=== PATIENT | male | born 1935 | race Caucasian/White ===

== ENCOUNTER 2016-05-20 13:07 | Inpatient (IN) ==
--- NOTE | 2016-05-20 13:20 | Emergency Department Note ---
Disposition Clinical Impression: Atrial flutter with rapid ventricular response, Metastatic colon cancer to liver Disposition: Admitted As Inpatient Condition: Fair Referrals: Derik Alvarenga Jr, MD [Primary Care Provider] - Forms: ED Satisfaction Letter Time of Disposition: 13:40 Arrhythmia/Palpitations HPI - General Chief Complaint: ED Arrhythmia/Palpitations Stated Complaint: arrhythmia Time Seen by Provider: 05/20/16 13:09 Source: family, other Mode of arrival: wheelchair Limitations: no limitations Nursing Notes Reviewed: Yes Vital Signs Reviewed: Yes - History of Present Illness HPI Narrative: 80-year-old who has a history stage IV cancer metastases to the liver is jaundiced and has stents who was being evaluated for new stent placement was found to have a flutter with a rate of about 134. Patient does have a history of atrial fib. A review of the records shows that the patient did have an echo done in 2013 showed an EF of 60%. No recent echo done. Pt Subjective Complaint: rapid heart beat Onset (ago): Just [employer] Duration: constant Severity: mild Context: occurred during rest Arrhythmia History: atrial fibrillation Associated symptoms: Reports: denies other symptoms - Related Data Home Medications Medication Instructions Recorded Confirmed Levothyroxine [Synthroid] 50 mcg PO DAILY 10/06/14 05/20/16 Prochlorperazine Maleate 10 mg PO Q6HR PRN 04/02/16 05/20/16 [Compazine] Aspirin 81 mg PO DAILY 04/10/16 05/20/16 DiphenhydraMINE [Benadryl] 25 mg PO Q6HR PRN 04/10/16 05/20/16 Guaifenesin [Mucinex] 600 mg PO BID PRN 04/10/16 05/20/16 Oxycodone HCl/Acetaminophen 1 tab PO Q6H PRN 04/10/16 05/20/16 [Percocet 5-325 mg Tablet] HYDROcodone/Acet 10/325 mg [[place] 1 tab PO Q6HR PRN 04/28/16 05/20/16 10-325 mg] Lactose-Reduced Food [Boost] 237 ml PO QID 04/28/16 05/20/16 Metoprolol XL (24 HR) Succ [Toprol 25 mg PO DAILY 05/16/16 05/20/16 XL] Previous Rx's Medication Instructions Recorded Fludrocortisone Acetate [Florinef] 0.1 mg PO DAILY #30 tablet 12/07/15 Lactobacillus Acidophilus 1 each PO DAILY #30 capsule 03/24/16 [Acidophilus Lactobacillus] Trifluridine/Tipiracil HCl 3 each PO BID #60 tablet 05/01/16 [Lonsurf 15 mg-6.14 mg Tablet] Trifluridine/Tipiracil HCl 3 tab PO BID #60 tablet 05/01/16 [Lonsurf 20 mg-8.19 mg Tablet] GuaiFENesin/Codeine [Robitussin 10 ml PO Q6HR PRN #300 liquid 05/16/16 w/Codeine] Sertraline [Zoloft] 100 mg PO HS #90 tablet 05/19/16 Allergies Allergy/AdvReac Type Severity Reaction Status Date / Time Penicillins [PCN] Allergy Intermediate Rash Verified 05/20/16 11:04 Sulfa (Sulfonamide Allergy Mild Rash Verified 05/20/16 11:04 Antibiotics) Constitutional: Denies: fever, chills, weakness, weight change Eyes: Denies: eye pain, eye discharge, vision change ENT ED: Denies: ear pain, throat pain, dental pain, hearing loss, epistaxis, congestion, dysphagia Cardiovascular: Reports: palpitations. Denies: chest pain, dyspnea on exertion , edema, syncope Respiratory: Denies: cough, dyspnea, wheezes, hemoptysis, stridor Gastrointestinal: Denies: abdominal pain, nausea, vomiting, diarrhea, constipation, hematemesis, melena, hematochezia Genitourinary: Denies: urgency, dysuria, frequency, hematuria Musculoskeletal: Denies: back pain, neck pain, arthralgia, myalgia Integumentary: Denies: rash, abrasion, lesions Neurological: Denies: headache, weakness, numbness, paresthesias, confusion, abnormal gait, vertigo Psychiatric: Denies: anxiety, depression, suicidal thoughts, homicidal thoughts , auditory hallucinations, visual hallucinations Endocrine: Denies: fatigue Hematological/Lymphatic: Denies: easy bleeding, easy bruising Allergic/Immunologic: Denies: facial swelling, urticaria Past Medical History - Past Medical History Medical history: Reports: arthritis, atrial fibrillation, cancer, GERD, GI bleed , hepatitis, liver disease, malignancy, osteoporosis, renal disease, thyroid disease, TIA, other Surgical history: Reports: appendectomy, cancer surgery, cataract, colectomy, herniorrhaphy, ureteral stent, other Psychiatric history: Reports: anxiety, depression - Social History Smoking Status: Former smoker Smokeless Tobacco Status: No Alcohol use: Reports: none Drug use: Reports: none Physical Exam - General Limitations: no limitations General appearance: alert, in no apparent distress - Head Head exam: atraumatic, normocephalic, normal inspection - Eye Eye exam: Present: normal appearance, PERRL, EOMI - ENT ENT exam: normal exam, normal oropharynx, mucous membranes moist - Neck Neck exam: Present: normal inspection, full ROM, trachea midline - Chest Chest inspection: Present: normal inspection, symmetric chest wall rise - Respiratory Respiratory exam: Present: normal lung sounds bilaterally - Cardiovascular Cardiovascular exam: Present: regular rate, tachycardia - Abdominal Exam Abdominal exam: Present: soft, Non-Tender. Absent: tenderness, distention, guarding, rebound, rigidity - Extremities Exam Extremities exam: Present: normal inspection, full ROM. Absent: tenderness, pedal edema - Expanded Lower Extremity Exam Gait: observed and normal - Back Exam Back exam: Present: normal inspection, full ROM. Absent: tenderness - Neurological Exam Neurological exam: Present: alert, oriented X3 - Psychiatric Psychiatric exam: Present: normal affect, normal mood - Skin Skin exam: Present: warm, dry, intact, normal color, other (Jaundiced) Course - Reevaluation(s) Reevaluation #1: 80-year-old who was seen a GI procedure found to have a flutter with a rate of 130s. Previous echocardiogram shows an EF of 60%. Consultation obtained with cardiology who recommends Cardizem. Patient does have liver metastases we will reduce the dose of Cardizem based on the liver metastases and the clearance of Cardizem through the liver. Time: 13:39 - Consultations Consultation #1: Discussed with , will start Cardizem. Time: 13:38 Consultation #2: Discussed with , admit. Time: 15:06 Vital Signs Temperature 98.0 F 05/20/16 13:11 Pulse Rate 134 05/20/16 13:11 Respiratory Rate 18 05/20/16 13:11 Blood Pressure 110/70 05/20/16 13:11 O2 Sat by Pulse Oximetry 99 05/20/16 13:11 Temperature 98.0 F 05/20/16 13:11 Pulse Rate 132 03/21/17 15:00 Respiratory Rate 18 05/20/16 13:53 Blood Pressure 102/62 05/20/16 15:00 O2 Sat by Pulse Oximetry 98 05/20/16 15:00 Oxygen Delivery Oxygen Delivery Room Air Arrhythmia/Palpitations - Lab Data Result diagrams: 05/20/16 13:38 05/20/16 13:38 Lab Results 05/20/16 05/20/16 05/20/16 Range/Units 13:38 13:38 13:38 WBC 10.3 (4.3-11.1) K/mcL RBC 2.70 L (4.19-5.50) M/mcL Hgb 9.1 L (12.9-16.9) g/dL Hct 27.0 L (37.5-50.1) % MCV 100.0 (83.0-100.0) fL MCH 33.7 H (28.0-33.3) pg MCHC 33.7 (31.6-35.5) g/dL RDW 16.8 H (11.5-14.5) % Plt Count 159 (140-400) K/mcL MPV 10.5 (9.4-12.4) fL Immature Gran % 0.6 (0-4) % Seg Neutrophils % 87.2 % Lymphocytes % 3.7 % Monocytes % 7.6 % Eosinophils % 0.7 % Basophils % 0.2 % Neutrophils # 8.9 (1.6-8.9) K/mcL Lymphocytes # 0.4 L (0.6-4.6) K/mcL Monocytes # 0.8 (0.0-1.3) K/mcL Eosinophils # 0.1 (0.0-0.6) K/mcL Basophils # 0.0 (0.0-0.2) K/mcL PT 19.7 H (9.4-12.1) Seconds INR 1.8 APTT 35.8 (26.0-36.0) Seconds Sodium 141 (136-145) mEq/L Potassium 3.4 L (3.5-4.5) mEq/L Chloride 111 H (98-109) mEq/L Carbon Dioxide 21 (19-29) mEq/L BUN 26 (8-26) mg/dL Creatinine 0.92 (0.72-1.25) mg/dL Est GFR ( Amer) > 60 (> 60) Est GFR (Non-Af Amer) > 60 (> 60) BUN/Creatinine Ratio 28 H (6-26) Glucose 91 (70-99) mg/dL Calculated Osmolality 296 (280-300) Calcium 8.1 L (8.6-10.8) mg/dL Total Bilirubin (0.2-1.2) mg/dL Direct Bilirubin (0.0-0.5) mg/dL Indirect Bilirubin (0.0-1.2) mg/dL AST (5-34) Units/L ALT (0-55) Units/L Alkaline Phosphatase (38-126) Units/L Troponin I (0-0.03) ng/mL Serum Total Protein (6.0-8.3) g/dL Albumin (3.5-5.0) g/dL Globulin (2.4-3.5) g/dL Albumin/Globulin Ratio (1.1-2.2) TSH 0.599 (0.350-4.840) mcIU/mL 05/20/16 05/20/16 Range/Units 13:38 13:38 WBC (4.3-11.1) K/mcL RBC (4.19-5.50) M/mcL Hgb (12.9-16.9) g/dL Hct (37.5-50.1) % MCV (83.0-100.0) fL MCH (28.0-33.3) pg MCHC (31.6-35.5) g/dL RDW (11.5-14.5) % Plt Count (140-400) K/mcL MPV (9.4-12.4) fL Immature Gran % (0-4) % Seg Neutrophils % % Lymphocytes % % Monocytes % % Eosinophils % % Basophils % % Neutrophils # (1.6-8.9) K/mcL Lymphocytes # (0.6-4.6) K/mcL Monocytes # (0.0-1.3) K/mcL Eosinophils # (0.0-0.6) K/mcL Basophils # (0.0-0.2) K/mcL PT (9.4-12.1) Seconds INR APTT (26.0-36.0) Seconds Sodium (136-145) mEq/L Potassium (3.5-4.5) mEq/L Chloride (98-109) mEq/L Carbon Dioxide (19-29) mEq/L BUN (8-26) mg/dL Creatinine (0.72-1.25) mg/dL Est GFR ( Amer) (> 60) Est GFR (Non-Af Amer) (> 60) BUN/Creatinine Ratio (6-26) Glucose (70-99) mg/dL Calculated Osmolality (280-300) Calcium (8.6-10.8) mg/dL Total Bilirubin 23.3 H (0.2-1.2) mg/dL Direct Bilirubin 17.2 H (0.0-0.5) mg/dL Indirect Bilirubin 6.1 H (0.0-1.2) mg/dL AST 174 H (5-34) Units/L ALT 107 H (0-55) Units/L Alkaline Phosphatase 742 H (38-126) Units/L Troponin I 0.01 (0-0.03) ng/mL Serum Total Protein 5.3 L (6.0-8.3) g/dL Albumin 1.7 L (3.5-5.0) g/dL Globulin 3.6 H (2.4-3.5) g/dL Albumin/Globulin Ratio 0.5 L (1.1-2.2) TSH (0.350-4.840) mcIU/mL
[2016-05-20 13:51] LABS: Basophils % 0.2 %; Eosinophils # 0.1 K/mcL (0.0-0.6); Eosinophils % 0.7 %; Hemoglobin 9.1 g/dL (12.9-16.9); Immature Granulocytes % 0.6 % (0-4); Lymphocytes # 0.4 K/mcL (0.6-4.6); Lymphocytes % 3.7 %; Mean Corpuscular HGB Conc 33.7 g/dL (31.6-35.5); Mean Corpuscular Hemoglobin 33.7 pg (28.0-33.3); Mean Platelet Volume 10.5 fL (9.4-12.4); Monocytes # 0.8 K/mcL (0.0-1.3); Monocytes % 7.6 %; Neutrophils # 8.9 K/mcL (1.6-8.9); Platelet Count 159 K/mcL (140-400); Red Cell Distribution Width 16.8 % (11.5-14.5); Segmented Neutrophils % 87.2 %
[2016-05-20 14:00] LABS: INR 1.8; Prothrombin Time 19.7 Seconds (9.4-12.1)
[2016-05-20 14:02] LABS: Activated Partial Thrombo Time 35.8 Seconds (26.0-36.0)
[2016-05-20 14:03] LABS: BUN/Creatinine Ratio 28 (6-26); Blood Urea Nitrogen 26 mg/dL (8-26); Calcium 8.1 mg/dL (8.6-10.8); Carbon Dioxide 21 mEq/L (19-29); Chloride 111 mEq/L (98-109); Glucose 91 mg/dL (70-99); Osmolality,Calculated 296 (280-300); Potassium 3.4 mEq/L (3.5-4.5); eGFR For African Americans > 60 (> 60); eGFR For Non-African Americans > 60 (> 60)
[2016-05-20 14:06] LABS: Albumin/Globulin Ratio 0.5 (1.1-2.2); Globulin 3.6 g/dL (2.4-3.5); Total Protein 5.3 g/dL (6.0-8.3)
[2016-05-20 14:14] LABS: Sodium 141 mEq/L (136-145)
[2016-05-20] MEDS ORDERED: 0.9 % Sodium Chloride 500 ML IVC ONE (14:19)
[2016-05-20 14:27] LABS: Thyroid Stimulating Hormone 0.599 mcIU/mL (0.350-4.840)
[2016-05-20 14:47] LABS: Albumin 1.7 g/dL (3.5-5.0)
[2016-05-20 14:48] LABS: Bilirubin,Direct 17.2 mg/dL (0.0-0.5); Bilirubin,Indirect 6.1 mg/dL (0.0-1.2); Bilirubin,Total 23.3 mg/dL (0.2-1.2)
[2016-05-20] MEDS ORDERED: Naloxone 0.4 MG/ML INJ IVP PRN (17:55)
[2016-05-20] MEDS ORDERED: Ondansetron ODT 4 MG TAB.RAPDIS SL PRN (17:55)
[2016-05-20] MEDS ORDERED: *HR* HYDROcodone/Acet 10/325 mg TABLET PO PRN (17:59)
[2016-05-20] MEDS ORDERED: Nitroglycerin 0.4 MG TAB.SUBL SL PRN (17:59)
--- NOTE | 2016-05-20 18:24 | Internal Med History&Physical ---
Date of Encounter: 05/20/16 Time of Encounter: 18:13 Assessment and Plan (1) Atrial flutter with rapid ventricular response Current visit: Yes Status: Acute Patient with HR in 130s. He has history of Afib and is on Toprol at home, though patient's daughter reports he takes it "when he remembers". Cardiology consulted and advised starting a cardizem drip. Cardizem drip continuous stoner hand Transition to oral cardizem once rate is controlled. (2) Metastatic colon cancer to liver Current visit: Yes Status: Acute Patient was here for planned ERCP to relieve obstructive jaundice due to liver metastasis. Procedure aborted due to Aflutter with RVR. Once heart rate is controlled, patient may proceed with procedure. Patient is DNR-CCA-DNI. NPO at midnight in case of procedure tomorrow. (3) Attention to urostomy Current visit: No Status: Chronic Patient with Urostomy in place. Ostomy beefy red with orange liquid output. (4) Jaundice Current visit: No Status: Acute Patient was here for planned ERCP to relieve obstructive jaundice due to liver metastasis. Procedure aborted due to Aflutter with RVR. Once heart rate is controlled, patient may proceed with procedure. Patient is DNR-CCA-DNI. Consult to GI/Dr. Melton in order to coordinate ERCP. NPO at midnight in case of procedure tomorrow. (5) Hypokalemia Current visit: Yes Status: Acute Potassium of 3.4. 40mEq of Potassium Chloride PO ordered recheck chemistry tomorrow. (6) Anemia Current visit: Yes Status: Acute Hgb of 9.1, down from previous of 9.8. Patient denies any bloody stools or bleeding episodes. type and screen ordered. Iron studies, B12 and folate. Qualifiers: Anemia type: unspecified type Qualified Code(s): D64.9 - Anemia, unspecified (7) DVT prophylaxis Current visit: No Status: Acute Ambulate with assistance anti-embolic stockings Hold anti-coagulation in anticipation of possible procedure tomorrow. Internal Medicine - H&P: HPI Chief complaint: Aflutter with RVR Admitted From: Emergency Dept Plans for Post Hospital Care: Home History of present illness: Mr. Correa is a 80 year old male with atrial fibrillation, acid reflux, history of bladder cancer status post cystectomy and urostomy, metastatic colon cancer with liver and lung metastasis, he was sent to the emergency department after it was found that he was in a flutter with rapid ventricular response and heart rate of 134 when being prepped for his ERCP. Patient has progressive jaundice due to his liver metastasis and has had prior stents placed. Jaundice has returned they were planning another ERCP with stent today. Patient denies any headache, lightheadedness, chest pain, palpitations, shortness of breath. Patient reports a cough that has been going on for 2-3 weeks. Patient reports some nausea, and poor appetite. He denies any abdominal pain, or diarrhea. He denies any fever, chills, or sweats. Evaluation in the emergency department included EKG which showed a flutter with heart rate 134. Patient was anemic with hemoglobin of 9.1, which is consistent with his baseline. He was mildly hypokalemic with potassium of 3.4. LFTs were all elevated. Troponin was negative at 0.01. Kidney function was normal with BUN of 26 and creatinine of 0.92. On exam, patient is alert and oriented, in no acute distress. Lungs are clear bilaterally to auscultation. Heart had irregular rhythm. He was jaundiced. He had some mild tenderness in his right upper quadrant on palpation. Past Med Surg Social Fam HX - Past Medical History Medical history: arthritis, atrial fibrillation, cancer (bladder cancer s/p cystectomy with urostomy. Colon cancer s/p colectomy with ileostomy and reversal, now metastatic to Lungs and liver), GERD, GI bleed, hepatitis, liver disease (metastasis to liver with obstructive jaundice), malignancy, osteoporosis, renal disease, thyroid disease, TIA, other Psychiatric history: anxiety, depression - Past Surgical History Surgical History: appendectomy, cancer surgery, cataract, colectomy, herniorrhaphy, ureteral stent, other - Social History Smoking Status: Former smoker Smokeless Tobacco Status: No Alcohol use: none Drug use: none - Family History Mother History Unknown: Yes Adopted: No Family Member Ethnicity: Non- Living Status: Hx Family Cardiac Disorders: No Hx Family Respiratory Disorders: No Hx Family Cancer: Yes (bladder CA) Hx Family GI Disorders: No Hx Family Endocrine Disorder: No Hx Family Neuromuscular Disorders: No Hx Family Neurologic Disorders: No Hx Family HEENT Disorders: No Hx Family Autoimmune Disorders: No Father Living Status: Age at : 75 Cause of : cardiac Internal Medicine - H&P: Meds Levothyroxine [Synthroid] 50 mcg PO DAILY 10/06/14 [History] Fludrocortisone Acetate [Florinef] 0.1 mg PO DAILY #30 tablet 12/07/15 [Rx] Lactobacillus Acidophilus [Acidophilus Lactobacillus] 1 each PO DAILY #30 capsule 03/24/16 [Rx] Prochlorperazine Maleate [Compazine] 10 mg PO Q6HR PRN 04/02/16 [History] Aspirin 81 mg PO DAILY 04/10/16 [History] DiphenhydraMINE [Benadryl] 25 mg PO Q6HR PRN 04/10/16 [History] Guaifenesin [Mucinex] 600 mg PO BID PRN 04/10/16 [History] Oxycodone HCl/Acetaminophen [Percocet 5-325 mg Tablet] 1 tab PO Q6H PRN [History] HYDROcodone/Acet 10/325 mg [[place] 10-325 mg] 1 tab PO Q6HR PRN 04/28/16 [History ] Lactose-Reduced Food [Boost] 237 ml PO QID 04/28/16 [History] Trifluridine/Tipiracil HCl [[place] 15 mg-6.14 mg Tablet] 3 each PO BID #60 tablet 05/01/16 [Rx] Trifluridine/Tipiracil HCl [[place] 20 mg-8.19 mg Tablet] 3 tab PO BID #60 tablet 05/01/16 [Rx] GuaiFENesin/Codeine [Robitussin w/Codeine] 10 ml PO Q6HR PRN #300 liquid [Rx] Metoprolol XL (24 HR) Succ [Toprol XL] 25 mg PO DAILY 05/16/16 [History] Sertraline [Zoloft] 100 mg PO HS #90 tablet 05/19/16 [Rx] Nitroglycerin [Nitrostat] 0.4 mg SL Q5M PRN 05/20/16 [History] Allergies Penicillins [PCN] Allergy (Intermediate, Verified 05/20/16 11:04) Rash Sulfa (Sulfonamide Antibiotics) Allergy (Mild, Verified 05/20/16 11:04) Rash All Systems PM: A 10-system review of systems was performed and is negative for pertinent findings except as documented above in the HPI. - Constitutional Constitutional: anorexia, no chills, no fever(s), no night sweats - EENT Eyes: no change in vision, no discharge, no pain, no photophobia Ears: no ear discharge, no ear pain, no tinnitus Nose, mouth and throat: no dysphagia, no nasal discharge, no neck pain, no sore throat - Cardiovascular Cardiovascular ROS IM: no chest pain, no diaphoresis, no dyspnea, no lightheadedness, no palpitations, no syncope - Respiratory Respiratory: cough, no dyspnea, no wheezing, no excessive phlegm production - Gastrointestinal Gastrointestinal: nausea, no abdominal pain, no diarrhea, no hematemesis, no hematochezia, no melena, no vomiting - Musculoskeletal Musculoskeletal ROS IM: no numbness, no tingling - Integumentary Integumentary IM: jaundice, no rash, no unusual bruising - Neurological Neurological ROS: confusion (per daughter, occasional confusion), no convulsions , no focal weakness, no numbness, no tingling, no tremor(s) - Hematologic/Lymphatic Hematologic/Lymphatic: no easy bruising - Constitutional Vitals: Temp Pulse Resp BP Pulse Ox 97.9 F 130 15 100/63 97 05/20/16 17:09 05/20/16 17:09 05/20/16 15:46 05/20/16 17:09 05/20/16 17:09 General appearance: Present: A&O X 3, pleasant, no acute distress - Head Head exam: Present: atraumatic, normocephalic - Eye Eye exam: Present: PERRL, scleral icterus, conjuntiva pink Pupils: Present: PERRL - Neck Neck exam general surgery: Present: supple, trachea midline. Absent: lymphadenopathy - Respiratory Respiratory exam: Present: CTAB. Absent: accessory muscle use, rales, rhonchi, wheezes - Cardiovascular Cardiovascular exam: Present: irregular rhythm, +S1, +S2, tachycardia. Absent: diastolic murmur, gallop, rubs, systolic murmur - GI/Abdominal GI/Abdominal exam: Present: normal bowel sounds, soft, tenderness (mild right upper quadrant), no peritoneal signs. Absent: distended - Extremities Exam Extremities exam: Present: pedal edema (+2 BLE edema), warm, radial pulses palpable and symetrical. Absent: calf tenderness, cyanotic - Neurological Exam Neurological exam: Present: CN II-XII intact, oriented X3, no focal deficits. Absent: facial droop, speech deficit - Skin Skin exam: Present: dry, intact. Absent: normal color (jaundice) Internal Med - H&P Results - Labs CBC & Chem 7: 05/20/16 13:38 05/20/16 13:38 Labs: All Lab Results (24 Hours) 05/20/16 05/20/16 05/20/16 Range/Units 13:38 13:38 13:38 WBC 10.3 (4.3-11.1) K/mcL RBC 2.70 L (4.19-5.50) M/mcL Hgb 9.1 L (12.9-16.9) g/dL Hct 27.0 L (37.5-50.1) % MCV 100.0 (83.0-100.0) fL MCH 33.7 H (28.0-33.3) pg MCHC 33.7 (31.6-35.5) g/dL RDW 16.8 H (11.5-14.5) % Plt Count 159 (140-400) K/mcL MPV 10.5 (9.4-12.4) fL Immature Gran % 0.6 (0-4) % Seg Neutrophils % 87.2 % Lymphocytes % 3.7 % Monocytes % 7.6 % Eosinophils % 0.7 % Basophils % 0.2 % Neutrophils # 8.9 (1.6-8.9) K/mcL Lymphocytes # 0.4 L (0.6-4.6) K/mcL Monocytes # 0.8 (0.0-1.3) K/mcL Eosinophils # 0.1 (0.0-0.6) K/mcL Basophils # 0.0 (0.0-0.2) K/mcL PT 19.7 H (9.4-12.1) Seconds INR 1.8 APTT 35.8 (26.0-36.0) Seconds Sodium 141 (136-145) mEq/L Potassium 3.4 L (3.5-4.5) mEq/L Chloride 111 H (98-109) mEq/L Carbon Dioxide 21 (19-29) mEq/L BUN 26 (8-26) mg/dL Creatinine 0.92 (0.72-1.25) mg/dL Est GFR ( Amer) > 60 (> 60) Est GFR (Non-Af Amer) > 60 (> 60) BUN/Creatinine Ratio 28 H (6-26) Glucose 91 (70-99) mg/dL Calculated Osmolality 296 (280-300) Calcium 8.1 L (8.6-10.8) mg/dL Total Bilirubin (0.2-1.2) mg/dL Direct Bilirubin (0.0-0.5) mg/dL Indirect Bilirubin (0.0-1.2) mg/dL AST (5-34) Units/L ALT (0-55) Units/L Alkaline Phosphatase (38-126) Units/L Troponin I (0-0.03) ng/mL Serum Total Protein (6.0-8.3) g/dL Albumin (3.5-5.0) g/dL Globulin (2.4-3.5) g/dL Albumin/Globulin Ratio (1.1-2.2) TSH 0.599 (0.350-4.840) mcIU/mL 05/20/16 05/20/16 Range/Units 13:38 13:38 WBC (4.3-11.1) K/mcL RBC (4.19-5.50) M/mcL Hgb (12.9-16.9) g/dL Hct (37.5-50.1) % MCV (83.0-100.0) fL MCH (28.0-33.3) pg MCHC (31.6-35.5) g/dL RDW (11.5-14.5) % Plt Count (140-400) K/mcL MPV (9.4-12.4) fL Immature Gran % (0-4) % Seg Neutrophils % % Lymphocytes % % Monocytes % % Eosinophils % % Basophils % % Neutrophils # (1.6-8.9) K/mcL Lymphocytes # (0.6-4.6) K/mcL Monocytes # (0.0-1.3) K/mcL Eosinophils # (0.0-0.6) K/mcL Basophils # (0.0-0.2) K/mcL PT (9.4-12.1) Seconds INR APTT (26.0-36.0) Seconds Sodium (136-145) mEq/L Potassium (3.5-4.5) mEq/L Chloride (98-109) mEq/L Carbon Dioxide (19-29) mEq/L BUN (8-26) mg/dL Creatinine (0.72-1.25) mg/dL Est GFR ( Amer) (> 60) Est GFR (Non-Af Amer) (> 60) BUN/Creatinine Ratio (6-26) Glucose (70-99) mg/dL Calculated Osmolality (280-300) Calcium (8.6-10.8) mg/dL Total Bilirubin 23.3 H (0.2-1.2) mg/dL Direct Bilirubin 17.2 H (0.0-0.5) mg/dL Indirect Bilirubin 6.1 H (0.0-1.2) mg/dL AST 174 H (5-34) Units/L ALT 107 H (0-55) Units/L Alkaline Phosphatase 742 H (38-126) Units/L Troponin I 0.01 (0-0.03) ng/mL Serum Total Protein 5.3 L (6.0-8.3) g/dL Albumin 1.7 L (3.5-5.0) g/dL Globulin 3.6 H (2.4-3.5) g/dL Albumin/Globulin Ratio 0.5 L (1.1-2.2) TSH (0.350-4.840) mcIU/mL - Diagnostic Studies Chest x-ray Additional comments: Chest X-Ray 05/20/16 13:09 IMPRESSION: No acute cardiac or pulmonary disease. D/ / Js Cheney MD / Js Cheney MD Interpreting Provider: Js Cheney MD
[2016-05-20] MEDS ORDERED: *HR* Heparin 5,000 UNIT/ML VIAL SQ SCH (22:00)
[2016-05-21] MEDS ORDERED: 0.9 % Sodium Chloride 250 ML ONE ×2 (02:36→10:24)
[2016-05-21 06:26] LABS: Basophils % 0.3 %; Eosinophils # 0.1 K/mcL (0.0-0.6); Eosinophils % 0.8 %; Hematocrit 28.3 % (37.5-50.1); Hemoglobin 9.2 g/dL (12.9-16.9); INR 2.2; Immature Granulocytes % 0.5 % (0-4); Immature Platelets 3.2 % (1.1-6.1); Lymphocytes # 0.3 K/mcL (0.6-4.6); Lymphocytes % 3.1 %; Mean Corpuscular HGB Conc 32.5 g/dL (31.6-35.5); Mean Corpuscular Hemoglobin 32.6 pg (28.0-33.3); Mean Corpuscular Volume 100.4 fL (83.0-100.0); Mean Platelet Volume 10.5 fL (9.4-12.4); Monocytes # 0.9 K/mcL (0.0-1.3); Monocytes % 8.4 %; Neutrophils # 9.3 K/mcL (1.6-8.9); Platelet Count 175 K/mcL (140-400); Prothrombin Time 24.5 Seconds (9.4-12.1); Red Blood Count 2.82 M/mcL (4.19-5.50); Red Cell Distribution Width 17.1 % (11.5-14.5); Segmented Neutrophils % 86.9 %
[2016-05-21 06:28] LABS: Activated Partial Thrombo Time 38.2 Seconds (26.0-36.0)
[2016-05-21] MEDS: Aspirin 81 MG TAB.CHEW PO SCH (07:58)
[2016-05-21] MEDS: Metoprolol XL (24 HR) Succ 25 MG TAB.ER.24H PO SCH (07:58)
[2016-05-21] MEDS: Lactobacillus 1 EACH CAP.SPRINK PO SCH (07:58)
--- NOTE | 2016-05-21 09:32 | Cardiology Consult Note ---
Date of Encounter: 05/21/16 Time of Encounter: 08:30 Assessment and Plan (1) Atrial flutter with rapid ventricular response Current Visit: Yes Status: Acute Hx of PAF not on AC due to GI bleed on Coumadin. 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 Melton; found to have atrial flutter with RVR and procedure was postponed. Has been on cardizem gtt at 7.5 mg/hr; avg HR overnight=88 aflutter. Recommend continuing cardizem gtt in the yumiko-operative period; transition to oral cardizem when can tolerate oral intake. He is a poor candidate for AC due to mets colon CA to liver and hx of GI bleed on coumadin. Continue ASA 81 mg daily. No further inpatient testing from Cardiology standpoint recommended. Cardiology will sign-off. Follow-up with Dr. Roberts in 1-2 weeks after discharge--appt. to be coordinated with office. Discussion w patient/family: The assessment and plan as outlined above was discussed with the patient and/or family members who expressed understanding and agreement. All questions were answered. Thank you for involving us in the care of your patient. Please call with any questions. The patient will be discussed and reviewed with Dr. Will; changes to be made accordingly. History of Present Illness Consult date: 05/20/16 Requesting physician: Marti Noel Consult reason: Aflutter with RVR Chief complaint: Palpitations History of present illness: Mr. Correa is a 80 year old male with PMH significant for PAF, BPH, mets colon CA to liver who presented to [facility] for MRCP with stent by Dr. Melton. He was found to be in atrial flutter with RVR and sent to the ED for further evaluation. He denied symptoms including palpitations, chest pain or discomfort, dyspnea, or dizziness. He was started on a cardizem gtt and admitted as inpatient. With regards to his CA, he is no longer undergoing treatment and is DNRCCA-DNI. Prior CV testing includes: TTE 12/2013: EF 60%, moderate biatrial enlargement, mild TR Past Med Surg Social Fam HX - Past Medical History Attestation: Yes The following information was validated with the patient. Source: patient, old records reviewed Medical history: arthritis, atrial fibrillation, cancer (bladder cancer s/p cystectomy with urostomy. Colon cancer s/p colectomy with ileostomy and reversal, now metastatic to Lungs and liver), GERD, GI bleed, hepatitis, liver disease (metastasis to liver with obstructive jaundice), malignancy, osteoporosis, renal disease, thyroid disease, TIA, other Psychiatric history: anxiety, depression - Past Surgical History Surgical History: appendectomy, cancer surgery, cataract, colectomy, herniorrhaphy, ureteral stent - Social History Smoking Status: Former smoker Smokeless Tobacco Status: No Alcohol use: none Drug use: none - Family History Father Living Status: Age at : 75 Cause of : cardiac Mother History Unknown: Yes Adopted: No Family Member Ethnicity: Non- Living Status: Hx Family Cardiac Disorders: No Hx Family Respiratory Disorders: No Hx Family Cancer: Yes (bladder CA) Hx Family GI Disorders: No Hx Family Endocrine Disorder: No Hx Family Neuromuscular Disorders: No Hx Family Neurologic Disorders: No Hx Family HEENT Disorders: No Hx Family Autoimmune Disorders: No Medications and Allergies Levothyroxine [Synthroid] 50 mcg PO DAILY 10/06/14 [History] Fludrocortisone Acetate [Florinef] 0.1 mg PO DAILY #30 tablet 12/07/15 [Rx] Lactobacillus Acidophilus [Acidophilus Lactobacillus] 1 each PO DAILY #30 capsule 03/24/16 [Rx] Prochlorperazine Maleate [Compazine] 10 mg PO Q6HR PRN 04/02/16 [History] Aspirin 81 mg PO DAILY 04/10/16 [History] DiphenhydraMINE [Benadryl] 25 mg PO Q6HR PRN 04/10/16 [History] Guaifenesin [Mucinex] 600 mg PO BID PRN 04/10/16 [History] Oxycodone HCl/Acetaminophen [Percocet 5-325 mg Tablet] 1 tab PO Q6H PRN [History] HYDROcodone/Acet 10/325 mg [Dysart 10-325 mg] 1 tab PO Q6HR PRN 04/28/16 [History ] Lactose-Reduced Food [Boost] 237 ml PO QID 04/28/16 [History] Trifluridine/Tipiracil HCl [Lonsurf 15 mg-6.14 mg Tablet] 3 each PO BID #60 tablet 05/01/16 [Rx] Trifluridine/Tipiracil HCl [Lonsurf 20 mg-8.19 mg Tablet] 3 tab PO BID #60 tablet 05/01/16 [Rx] GuaiFENesin/Codeine [Robitussin w/Codeine] 10 ml PO Q6HR PRN #300 liquid [Rx] Metoprolol XL (24 HR) Succ [Toprol XL] 25 mg PO DAILY 05/16/16 [History] Sertraline [Zoloft] 100 mg PO HS #90 tablet 05/19/16 [Rx] Nitroglycerin [Nitrostat] 0.4 mg SL Q5M PRN 05/20/16 [History] Allergies Penicillins [PCN] Allergy (Intermediate, Verified 05/20/16 11:04) Rash Sulfa (Sulfonamide Antibiotics) Allergy (Mild, Verified 05/20/16 11:04) Rash All Systems Review: A 10-system review of systems was performed and is negative for pertinent findings except as documented above in the HPI. - Cardiovascular Cardiovascular: as per HPI Physical Examination Vital Signs, Last 4 Hours Temp Pulse Resp BP Pulse Ox 05/21/16 07:31 98.4 F 90 18 99/61 98 General: Conversant, Other (thin, frail, jaundiced. ) Cardiac: Other (irregularly irregular) Lungs: Normal Breath Sounds Neuro: Alert and responsive Abdomen: Soft Extremities: No Edema, Normal Pulses Results 05/21/16 05:41 05/20/16 13:38 Lab Results 05/21/16 05/21/16 05:41 05:41 WBC 10.7 Hgb 9.2 L Hct 28.3 L Plt Count 175 INR 2.2 APTT 38.2 H - Imaging and Cardiology Echo: report reviewed Other Results: 12 hour tele: avg HR=88 aflutter. - EKG Interpretation EKG results cardiology: personally reviewed Consult Discharge Plan - Plan Referrals: Derik Alvarenga Jr, MD [Primary Care Provider] -
--- NOTE | 2016-05-21 10:03 | Palliative - Consult Note ---
<Nolan Barbosa - Last Filed: 05/21/16 10:00> Date of Encounter: 05/21/16 Time of Encounter: 10:15 - Assessment and Plan (1) Goals of care, counseling/discussion Current Visit: No Status: Acute Assessment and plan: Current medical status including underlying conditions and prognosis reviewed with the patient. Patient understands that his prognosis is poor and there do not appear to be any curative treatment options remaining. I explained to patient the role that hospice can play in his future treatment plans. The patient did seem interested in learning more about hospice and other options that the palliative care team can offer him. Patient did request that we come back and discuss things further when his is present. We will continue to follow the patient throughout his hospital stay and continue to offer palliative options including hospice care. Patient's current CODE STATUS is DNR CCA/DNI, this was discussed with the patient and he reaffirmed his wishes to remain a DNR CCA/DNI. Patient does state that his pain is under good control this time, denies shortness of breath, anxiety, decreased appetite or difficulty with oral intake. (2) Atrial flutter with rapid ventricular response Current Visit: Yes Status: Acute Assessment and plan: Chronic issue, heart rate under better control this time. Further management per primary team and cardiology. (3) Hyperbilirubinemia Current Visit: No Status: Acute Assessment and plan: Likely related to metastatic liver disease. Patient does have a metal stent in place, gastroenterology is evaluating the patient and the plan is to change to a plastic stent with the procedure planned for tomorrow. Further management per primary team and gastroenterology. (4) Metastatic colon cancer to liver Current Visit: Yes Status: Acute Assessment and plan: Being followed by oncology with multiple treatments in the past, per the patient Dr. Mendoza has told him that there are no more treatment options available at this time. Palliative-CN HPI - Data of Consult Patient: new to practice Consult date: 05/20/16 Requesting Physician: Teja Samson DO Primary Care Provider: Derik Alvarenga Jr, MD - Consult Narrative Reason for consult: Goals of care History of present illness: Mr. Correa is a 80 year old male with history of bladder cancer, metastatic colon cancer, atrial fibrillation who presents with palpitations and yellowing of the skin. Patient states he has had issues with atrial fibrillation in the past and his symptoms began yesterday. Patient also states that he has been jaundiced before and has had common bile duct stents placed to treat this in the past. At the time of my exam the patient had no specific complaints, he denied pain, shortness of breath, fever, chills, chest pain, palpitations, nausea, vomiting, diarrhea. CC: Teja Samson, DO Past Med Surg Social Fam HX - Past Medical History Medical history: arthritis, atrial fibrillation, cancer (bladder cancer s/p cystectomy with urostomy. Colon cancer s/p colectomy with ileostomy and reversal, now metastatic to Lungs and liver), GERD, GI bleed, hepatitis, liver disease (metastasis to liver with obstructive jaundice), malignancy, osteoporosis, renal disease, thyroid disease, TIA, other Psychiatric history: anxiety, depression - Past Surgical History Surgical History: appendectomy, cancer surgery, cataract, colectomy, herniorrhaphy, ureteral stent - Social History Smoking Status: Former smoker Smokeless Tobacco Status: No Alcohol use: none Drug use: none - Family History Father Living Status: Age at : 75 Cause of : cardiac Mother History Unknown: Yes Adopted: No Family Member Ethnicity: Non- Living Status: Hx Family Cardiac Disorders: No Hx Family Respiratory Disorders: No Hx Family Cancer: Yes (bladder CA) Hx Family GI Disorders: No Hx Family Endocrine Disorder: No Hx Family Neuromuscular Disorders: No Hx Family Neurologic Disorders: No Hx Family HEENT Disorders: No Hx Family Autoimmune Disorders: No Medications and Allergies Levothyroxine [Synthroid] 50 mcg PO DAILY 10/06/14 [History] Fludrocortisone Acetate [Florinef] 0.1 mg PO DAILY #30 tablet 12/07/15 [Rx] Lactobacillus Acidophilus [Acidophilus Lactobacillus] 1 each PO DAILY #30 capsule 03/24/16 [Rx] Prochlorperazine Maleate [Compazine] 10 mg PO Q6HR PRN 04/02/16 [History] Aspirin 81 mg PO DAILY 04/10/16 [History] DiphenhydraMINE [Benadryl] 25 mg PO Q6HR PRN 04/10/16 [History] Guaifenesin [Mucinex] 600 mg PO BID PRN 04/10/16 [History] Oxycodone HCl/Acetaminophen [Percocet 5-325 mg Tablet] 1 tab PO Q6H PRN [History] HYDROcodone/Acet 10/325 mg [Peck 10-325 mg] 1 tab PO Q6HR PRN 04/28/16 [History ] Lactose-Reduced Food [Boost] 237 ml PO QID 04/28/16 [History] Trifluridine/Tipiracil HCl [Lonsurf 15 mg-6.14 mg Tablet] 3 each PO BID #60 tablet 05/01/16 [Rx] Trifluridine/Tipiracil HCl [Lonsurf 20 mg-8.19 mg Tablet] 3 tab PO BID #60 tablet 05/01/16 [Rx] GuaiFENesin/Codeine [Robitussin w/Codeine] 10 ml PO Q6HR PRN #300 liquid [Rx] Metoprolol XL (24 HR) Succ [Toprol XL] 25 mg PO DAILY 05/16/16 [History] Sertraline [Zoloft] 100 mg PO HS #90 tablet 05/19/16 [Rx] Nitroglycerin [Nitrostat] 0.4 mg SL Q5M PRN 05/20/16 [History] Allergies Penicillins [PCN] Allergy (Intermediate, Verified 05/20/16 11:04) Rash Sulfa (Sulfonamide Antibiotics) Allergy (Mild, Verified 05/20/16 11:04) Rash All systems: reviewed and no additional remarkable complaints except as stated Palliative Care-Exam - Constitutional Vitals: Temp Pulse Resp BP Pulse Ox 98.4 F 90 18 99/61 98 05/21/16 07:31 05/21/16 07:31 05/21/16 07:31 05/21/16 07:31 05/21/16 07:31 General appearance: Present: no acute distress - Head Head Exam: Present: atraumatic, normal inspection, normocephalic - Eye Eye exam: Present: EOMI, scleral icterus - ENT ENT exam: Present: mucous membranes dry - Respiratory Respiratory exam: Present: CTAB. Absent: rales, rhonchi, stridor - Cardiovascular Cardiovascular exam: Present: irregular rhythm. Absent: gallop, rubs, systolic murmur, tachycardia - GI/Abdominal Exam GI/Abdominal exam: Present: normal bowel sounds, soft. Absent: tenderness - Extremities Exam Extremities exam: Present: normal inspection. Absent: pedal edema, tenderness - Neurological Exam Neurological exam: Present: alert, CN II-XII intact, oriented X3, no focal deficits - Skin Additional comments: Significant jaundice throughout. Internal Medicine - CN: Reslt - Labs CBC & Chem 7: 05/21/16 05:41 05/20/16 13:38 Labs: Short CBC 05/21/16 Range/Units 05:41 WBC 10.7 (4.3-11.1) K/mcL Hgb 9.2 L (12.9-16.9) g/dL Hct 28.3 L (37.5-50.1) % Plt Count 175 (140-400) K/mcL Neutrophils # 9.3 H (1.6-8.9) K/mcL - ABG Interpretation ABG results: PT/INR, D-dimer PT 24.5 Seconds (9.4-12.1) H 05/21/16 05:41 Consult Discharge Plan - Plan Referrals: Derik Alvarenga Jr, MD [Primary Care Provider] - ([facility] Palliative Quality Palliative Quality: Screen for Code Status: Yes, Screen for Goals of Care: Yes, Screen for Pain: Yes, If Pain Regimen Started, Initiate Bowel Regimen: NA, Screen for Nausea/Vomitting: Yes Code Status: DO NOT RESUSCITATE comfort care arrest/DO NOT INTUBATE <Seth Barrera - Last Filed: 05/21/16 12:27> Palliative-CN HPI - Data of Consult Requesting Physician: Teja Samson DO Primary Care Provider: Derik Alvarenga Jr, MD - Consult Narrative History of present illness: Mr. Correa is a 80 year old male CC: Teja Samson DO Palliative Care-Exam - Constitutional Vitals: Temp Pulse Resp BP Pulse Ox 98.4 F 90 18 99/61 98 05/21/16 07:31 05/21/16 07:31 05/21/16 07:31 05/21/16 07:31 05/21/16 07:31 Internal Medicine - CN: Reslt - Labs CBC & Chem 7: 05/21/16 05:41 05/21/16 05:41 Labs: Short CBC 05/21/16 Range/Units 05:41 WBC 10.7 (4.3-11.1) K/mcL Hgb 9.2 L (12.9-16.9) g/dL Hct 28.3 L (37.5-50.1) % Plt Count 175 (140-400) K/mcL Neutrophils # 9.3 H (1.6-8.9) K/mcL BMP 05/21/16 05:41 Sodium 141 Potassium 3.7 Chloride 112 H Carbon Dioxide 23 BUN 25 Creatinine 0.92 Glucose 128 H Calcium 8.4 L Liver Function 05/21/16 Range/Units 05:41 Total Bilirubin 22.3 H (0.2-1.2) mg/dL AST 168 H (5-34) Units/L ALT 103 H (0-55) Units/L Alkaline Phosphatase 734 H (38-126) Units/L Albumin 1.6 L (3.5-5.0) g/dL - ABG Interpretation ABG results: PT/INR, D-dimer PT 24.5 Seconds (9.4-12.1) H 05/21/16 05:41 - Attending Attestation I examined this patient and my medical decision-making was reviewed with the BULB PLANTER/PA/Advanced Practice Nurse/Resident Physician. I agree with the documented findings, disposition and treatment plan as described except to the extent set forth below.
--- NOTE | 2016-05-21 11:14 | Gastroenterology Consult Note ---
<Nolan Colin - Last Filed: 05/21/16 11:11> Date of Encounter: 05/21/16 Time of Encounter: 10:00 - Assessment and plan (1) Secondary malignant neoplasm of liver Current Visit: Yes Status: Acute Assessment and plan: Plan for repeat ERCP with plastic stent through the metal stent. If no relief of jaundice, then may need PTC. (2) Metastatic colon cancer to liver Current Visit: Yes Status: Acute Assessment and plan: Mets to lung and liver. (3) Jaundice Current Visit: No Status: Acute Assessment and plan: Secondary to metastatic colon cancer. Plan for repeat ERCP with plastic stent throught the metal stent once HR controlled. Procedure was aborted due to A flutter with RVR. (4) Atrial flutter with rapid ventricular response Current Visit: Yes Status: Acute Assessment and plan: Continue Cardizem for rate control. - Time Spent With Patient Total time spent is greater than 50% in coordination of care (as documented) at patient's floor/unit and/or counseling patient: GI History of Present Illness - Data of Consult Patient: known to practice within the last 3 years Consult date: 05/21/16 Requesting Physician: Teja Samson DO - Consult Narrative Reason for consult: jaundice, metastatic colon cancer, ERCP History of present illness: Mr. Correa is a 80 year old male with PMHx of Afib, bladder cancer, metastatic colon cancer with liver and lung mets s/p colectomy with ileostomy presented to the ED when he was found to be in atrial flutter with RVR with HR 134 while being prepped for ERCP. He has progressive jaundice due to liver mets and had uncovered metal stent placed in the right intrahepatic/CBD on 04/10/2016. Total bili was up to 17.1 on 04/09/2016 and had come down to 6.4 on 04/30/2016. Jaundice has returned and total bili up to 23.3 on 05/20/2016. He deniea chest pain, SOB, abdominal pain, nausea, vomiting, diarrhea. Procedures: ERCP 04/10/2016 metastatic colon cancer with hilar obstruction, one uncovered metal stent placed in the right intrahepatic/common bile duct. Colonoscopy 03/22/2014 normal mucosa in entire examined colon. EGD 03/22/2014 negative for Tenorio's esophagus. NSAIDs: ASA Anticoagulation: None Past Med Surg Social Fam HX - Past Medical History Medical history: arthritis, atrial fibrillation, cancer (bladder cancer s/p cystectomy with urostomy. Colon cancer s/p colectomy with ileostomy and reversal, now metastatic to Lungs and liver), GERD, GI bleed, hepatitis, liver disease (metastasis to liver with obstructive jaundice), malignancy, osteoporosis, renal disease, thyroid disease, TIA, other Psychiatric history: anxiety, depression - Past Surgical History Surgical History: appendectomy, cancer surgery, cataract, colectomy, herniorrhaphy, ureteral stent - Social History Smoking Status: Former smoker Smokeless Tobacco Status: No Alcohol use: none Drug use: none - Family History Father Living Status: Age at : 75 Cause of : cardiac Mother History Unknown: Yes Adopted: No Family Member Ethnicity: Non- Living Status: Hx Family Cardiac Disorders: No Hx Family Respiratory Disorders: No Hx Family Cancer: Yes (bladder CA) Hx Family GI Disorders: No Hx Family Endocrine Disorder: No Hx Family Neuromuscular Disorders: No Hx Family Neurologic Disorders: No Hx Family HEENT Disorders: No Hx Family Autoimmune Disorders: No - Gastrointestinal Gastrointestinal: Present: as per HPI - Constitutional Constitutional: as per HPI - EENT Eyes: as per HPI Ears: Present: as per HPI Nose, mouth and throat: Present: as per HPI - Cardiovascular Cardiovascular ROS: Present: as per HPI - Respiratory Respiratory IM: Present: as per HPI - Genitourinary Genitourinary: Absent: change in color, Urinary frequency - Neurological ROS Neurological GI: Present: as per HPI - Hematologic/Lymphatic Hematologic/Lymphatic pediatric: Present: as per HPI - Musculoskeletal Musculoskeletal ROS GI: Present: as per HPI - Integumentary Integumentary GI: Present: as per HPI - Psychiatric ROS Psychiatric GI: Present: as per HPI - Endocrine Endocrine IM: Present: as per HPI - Constitutional Vitals: Temp Pulse Resp BP Pulse Ox 98.4 F 90 18 99/61 98 05/21/16 07:31 05/21/16 07:31 05/21/16 07:31 05/21/16 07:31 05/21/16 07:31 General appearance: Present: cooperative, A&O X 3, no acute distress, answers questions appropriately - Head Head exam: Present: atraumatic, normocephalic - Eye Eye exam: Present: scleral icterus - ENT ENT exam: Present: mucous membranes dry - Neck Neck exam general surgery: Present: normal inspection, trachea midline - Respiratory Respiratory exam: Present: CTAB. Absent: rales, rhonchi - Cardiovascular Cardiovascular exam: Present: irregular rhythm, +S1, +S2 - GI/Abdominal GI/Abdominal exam: Present: normal bowel sounds, soft, no peritoneal signs - Rectal Rectal exam: Present: deferred - Extremities Exam Extremities exam: Present: warm - Neurological Exam Neurological exam: Present: no focal deficits - Psychiatric Psychiatric exam: Present: normal affect, normal mood - Skin Skin exam: Present: dry, intact, warm. Absent: normal color (Jaundice) Results - Labs CBC & Chem 7: 05/21/16 05:41 05/20/16 13:38 Labs: Last Result Calcium 8.1 mg/dL (8.6-10.8) L 05/20/16 13:38 Troponin I 0.01 ng/mL (0-0.03) 05/20/16 13:38 Entire Visit Hgb 9.2 g/dL (12.9-16.9) L 05/21/16 05:41 Hct 28.3 % (37.5-50.1) L 05/21/16 05:41 PT 24.5 Seconds (9.4-12.1) H 05/21/16 05:41 Total Bilirubin 23.3 mg/dL (0.2-1.2) H 05/20/16 13:38 AST 174 Units/L (5-34) H 05/20/16 13:38 ALT 107 Units/L (0-55) H 05/20/16 13:38 - ABG ABG results: PT/INR, D-dimer PT 24.5 Seconds (9.4-12.1) H 05/21/16 05:41 Consult Discharge Plan - Plan Referrals: Derik Alvarenga Jr, MD [Primary Care Provider] - ([facility] likely going to [facility]) <Paz Melton - Last Filed: 05/21/16 14:29> - Time Spent With Patient Total time spent is greater than 50% in coordination of care (as documented) at patient's floor/unit and/or counseling patient: GI History of Present Illness - Data of Consult Requesting Physician: Teja Samson DO - Consult Narrative History of present illness: Mr. Correa is a 80 year old male - Constitutional Vitals: Temp Pulse Resp BP Pulse Ox 98.4 F 90 18 99/61 98 05/21/16 07:31 05/21/16 07:31 05/21/16 07:31 05/21/16 07:31 05/21/16 07:31 Results - Labs CBC & Chem 7: 05/21/16 05:41 05/21/16 05:41 Labs: Last Result Calcium 8.4 mg/dL (8.6-10.8) L 05/21/16 05:41 Iron 32 mcg/dL (65-175) L 05/21/16 05:41 % Saturation 19 % (20-55) L 05/21/16 05:41 Transferrin 123 mg/dL (174-364) L 05/21/16 05:41 Troponin I 0.01 ng/mL (0-0.03) 05/20/16 13:38 Vitamin B12 > 2000 pg/mL (213-816) H 05/21/16 05:41 Folate 14.6 ng/mL (7.0-31.4) 05/21/16 05:41 Entire Visit Hgb 9.2 g/dL (12.9-16.9) L 05/21/16 05:41 Hct 28.3 % (37.5-50.1) L 05/21/16 05:41 PT 24.5 Seconds (9.4-12.1) H 05/21/16 05:41 Total Bilirubin 22.3 mg/dL (0.2-1.2) H 05/21/16 05:41 AST 168 Units/L (5-34) H 05/21/16 05:41 ALT 103 Units/L (0-55) H 05/21/16 05:41 Folate 14.6 ng/mL (7.0-31.4) 05/21/16 05:41 - ABG ABG results: PT/INR, D-dimer PT 24.5 Seconds (9.4-12.1) H 05/21/16 05:41 - Attending Attestation I examined this patient and my medical decision-making was reviewed with the LITERACY TEACHER/PA/Advanced Practice Nurse/Resident Physician. I agree with the documented findings, disposition and treatment plan as described except to the extent set forth below.
[2016-05-21 11:35] LABS: Albumin/Globulin Ratio 0.5 (1.1-2.2); Alkaline Phosphatase 734 Units/L (38-126); Aspartate Amino Transferase 168 Units/L (5-34); BUN/Creatinine Ratio 27 (6-26); Bilirubin,Total 22.3 mg/dL (0.2-1.2); Blood Urea Nitrogen 25 mg/dL (8-26); Calcium 8.4 mg/dL (8.6-10.8); Carbon Dioxide 23 mEq/L (19-29); Chloride 112 mEq/L (98-109); Globulin 3.5 g/dL (2.4-3.5); Glucose 128 mg/dL (70-99); Magnesium 1.7 mg/dL (1.6-2.6); Osmolality,Calculated 298 (280-300); Potassium 3.7 mEq/L (3.5-4.5); Sodium 141 mEq/L (136-145); Total Protein 5.1 g/dL (6.0-8.3); Transferrin 123 mg/dL (174-364); eGFR For African Americans > 60 (> 60); eGFR For Non-African Americans > 60 (> 60)
[2016-05-21 12:21] LABS: Alanine Aminotransferase 103 Units/L (0-55); Albumin 1.6 g/dL (3.5-5.0)
[2016-05-21 12:40] LABS: % Iron Saturation 19 % (20-55); Iron 32 mcg/dL (65-175)
[2016-05-21 12:56] LABS: Folate 14.6 ng/mL (7.0-31.4)
[2016-05-21 12:58] LABS: Vitamin B12 > 2000 pg/mL (213-816)
[2016-05-21 13:24] LABS: Bilirubin,Direct 16.1 mg/dL (0.0-0.5)
[2016-05-21 13:25] LABS: Bilirubin,Indirect 6.2 mg/dL (0.0-1.2)
[2016-05-21] MEDS ORDERED: 0.9 % Sodium Chloride 500 ML ONE (13:44)
[2016-05-21] MEDS ORDERED: Diltiazem CD (24hr) 120 MG CAPSULE PO SCH (14:45)
--- NOTE | 2016-05-21 16:41 | Internal Med Progress Note ---
<Андрей Haley - Last Filed: 05/21/16 16:39> Date of Encounter: 05/21/16 Time of Encounter: 16:39 - Assessment and plan (1) Secondary malignant neoplasm of liver Current Visit: Yes Status: Acute Assessment and plan: Patient has metastatic colon cancer with metastatic disease to the liver. Clinical picture demonstrates a cachectic male that his jaundice and urostomy bag with orange urine. Laboratory results are significant for biliary obstruction with total bili 23.3, direct bili 16.1 and direct bili 6.2, AST 160 a.l. T103 and alkaline phosphatase 734. History of metal stents in biliary system. Plan: - Patient undergo ERCP with biliary stent. (2) Jaundice Current Visit: No Status: Acute Assessment and plan: Patient presented for planned ERCP to relieve obstructive jaundice with biliary stenting due to metastatic liver disease. Unable to complete procedure due to atrial flutter with RVR. Patient is now rate controlled with Cardizem and plan for biliary stenting tomorrow. Dr. Elliott aware and on case. (3) Atrial flutter with rapid ventricular response Current Visit: Yes Status: Acute Assessment and plan: Patient presented with atrial fibrillation RVR and required Cardizem drip for rate control. Cardiology was consult to evaluate the patient and plans to switch him to by mouth Cardizem. Plan: - 30 mg Cardizem every 6 hours 2 doses, then start Cardizem CD 120 in the morning. - Continue cardiac monitoring. (4) Hypokalemia Current Visit: Yes Status: Acute Assessment and plan: Hypokalemia upon presentation, patient received 40 potassium with increase in potassium level. Slightly hypokalemic will provide 40 potassium once now and recheck potassium level in a.m. (5) Supratherapeutic INR Current Visit: Yes Status: Acute Assessment and plan: supratheraputic INR at 2.2, Likely secondary to metastatic colon cancer to the liver. Plan: - FFP in the am prior to procedure. - Subjective Interval history: Mr. Cox 80-year-old male with known metastatic colon cancer and obstructive jaundice seen and evaluated patient presents pointing. He is awake alert and interactive and skin and sclera are jaundice. He denies any discomfort, pain, blurry vision, itching or scratching, burning or any other discomforts at this time. He said he is awaiting stenting of his biliary ducts. He is comfortable and has no further questions. - Constitutional Vitals: Temp Pulse Resp BP Pulse Ox 98.2 F 92 17 101/64 97 05/21/16 15:22 05/21/16 15:22 05/21/16 15:22 05/21/16 15:22 05/21/16 15:22 General appearance: Present: A&O X 3, pleasant, no acute distress - Head Head exam: Present: atraumatic, normocephalic - Eye Eye exam: Present: PERRL, scleral icterus - ENT ENT exam: Present: mucous membranes moist - Neck Neck exam general surgery: Present: supple, trachea midline. Absent: lymphadenopathy - Respiratory Respiratory exam: Present: CTAB. Absent: accessory muscle use, rales, rhonchi, wheezes - Cardiovascular Cardiovascular exam: Present: irregular rhythm - GI/Abdominal GI/Abdominal exam: Present: normal bowel sounds, soft. Absent: tenderness Additional comments: Urostomy bag full of orange urine. - Extremities Exam Extremities exam: Present: warm, radial pulses palpable and symetrical. Absent : calf tenderness, cyanotic, pedal edema - Neurological Exam Neurological exam: Present: alert, no focal deficits, strengths equal and symetr throughout. Absent: pronater drift, facial droop, speech deficit - Psychiatric Psychiatric exam: Present: normal mood - Skin Additional comments: Jaundice Internal Medicine: Result - Labs CBC & Chem 7: 05/21/16 05:41 05/21/16 05:41 Labs: Short CBC 05/21/16 Range/Units 05:41 WBC 10.7 (4.3-11.1) K/mcL Hgb 9.2 L (12.9-16.9) g/dL Hct 28.3 L (37.5-50.1) % Plt Count 175 (140-400) K/mcL Neutrophils # 9.3 H (1.6-8.9) K/mcL BMP 05/21/16 05:41 Sodium 141 Potassium 3.7 Chloride 112 H Carbon Dioxide 23 BUN 25 Creatinine 0.92 Glucose 128 H Calcium 8.4 L Liver Function 05/21/16 Range/Units 05:41 Total Bilirubin 22.3 H (0.2-1.2) mg/dL Direct Bilirubin 16.1 H D (0.0-0.5) mg/dL AST 168 H (5-34) Units/L ALT 103 H (0-55) Units/L Alkaline Phosphatase 734 H (38-126) Units/L Albumin 1.6 L (3.5-5.0) g/dL - ABG Interpretation ABG results: PT/INR, D-dimer PT 24.5 Seconds (9.4-12.1) H 05/21/16 05:41 - VTE Documentation of Mechanical Device: Graduated compression elastic hosiery Consult Discharge Plan - Plan Referrals: Derik Alvarenga Jr, MD [Primary Care Provider] - ([facility] going to [facility]) <Teja Samson - Last Filed: 05/21/16 18:52> - Assessment and plan (1) Secondary malignant neoplasm of liver Current Visit: Yes Status: Acute (2) Atrial flutter with rapid ventricular response Current Visit: Yes Status: Acute (3) Supratherapeutic INR Current Visit: Yes Status: Acute (4) Jaundice Current Visit: No Status: Acute (5) Hypokalemia Current Visit: No Status: Acute - Constitutional Vitals: Temp Pulse Resp BP Pulse Ox 98.2 F 92 17 101/64 97 05/21/16 15:22 05/21/16 15:22 05/21/16 15:22 05/21/16 15:22 05/21/16 15:22 Internal Medicine: Result - Labs CBC & Chem 7: 05/21/16 05:41 05/21/16 05:41 Labs: Short CBC 05/21/16 Range/Units 05:41 WBC 10.7 (4.3-11.1) K/mcL Hgb 9.2 L (12.9-16.9) g/dL Hct 28.3 L (37.5-50.1) % Plt Count 175 (140-400) K/mcL Neutrophils # 9.3 H (1.6-8.9) K/mcL BMP 05/21/16 05:41 Sodium 141 Potassium 3.7 Chloride 112 H Carbon Dioxide 23 BUN 25 Creatinine 0.92 Glucose 128 H Calcium 8.4 L Liver Function 05/21/16 Range/Units 05:41 Total Bilirubin 22.3 H (0.2-1.2) mg/dL Direct Bilirubin 16.1 H D (0.0-0.5) mg/dL AST 168 H (5-34) Units/L ALT 103 H (0-55) Units/L Alkaline Phosphatase 734 H (38-126) Units/L Albumin 1.6 L (3.5-5.0) g/dL - ABG Interpretation ABG results: PT/INR, D-dimer PT 24.5 Seconds (9.4-12.1) H 05/21/16 05:41 - Attending Attestation I examined this patient and my medical decision-making was reviewed with the Resident Physician on 05/21/16. I agree with the documented findings, disposition and treatment plan as described except to the extent set forth below. Mr. Correa is currently hospitalized for atrial flutter and obstructive jaundice due to metastatic colon cancer. He is moderate to high risk due to potential for worsening cardiac and liver status. Mr. Correa felt OK this afternoon but then had some nausea. Pain is controlled. Seen by palliative as well. To have ERCP tomorrow. Heart rate is better controlled. Exam Alert. Comfortable Jaundice Heart irreg - not tachy I/P 1. Metastatic colon cancer 2. Obstructive jaundice 3. Rapid atrial flutter Further diagnoses and plan as above.
[2016-05-21] MEDS ORDERED: *HR* Metoprolol 5 MG/5 ML VIAL IVP ONE (21:58)
[2016-05-22] MEDS: *HR* Digoxin 0.5 MG/2 ML AMPUL IVP SCH ×2 (05:19→11:57)
[2016-05-22] MEDS ORDERED: Diltiazem CD (24hr) 120 MG CAPSULE PO SCH ×2 (06:00→09:00)
[2016-05-22 07:11] LABS: INR 2.2
[2016-05-22 07:30] LABS: Albumin/Globulin Ratio 0.4 (1.1-2.2); Alkaline Phosphatase 916 Units/L (38-126); Aspartate Amino Transferase 195 Units/L (5-34); BUN/Creatinine Ratio 23 (6-26); Bilirubin,Total 22.7 mg/dL (0.2-1.2); Blood Urea Nitrogen 21 mg/dL (8-26); Calcium 8.2 mg/dL (8.6-10.8); Carbon Dioxide 21 mEq/L (19-29); Chloride 111 mEq/L (98-109); Glucose 111 mg/dL (70-99); Osmolality,Calculated 298 (280-300); Potassium 3.6 mEq/L (3.5-4.5); Sodium 142 mEq/L (136-145); Total Protein 5.7 g/dL (6.0-8.3); eGFR For African Americans > 60 (> 60); eGFR For Non-African Americans > 60 (> 60)
[2016-05-22 07:41] LABS: Alanine Aminotransferase 121 Units/L (0-55); Albumin 1.7 g/dL (3.5-5.0)
[2016-05-22] MEDS: Lactobacillus 1 EACH CAP.SPRINK PO SCH (08:41)
[2016-05-22] MEDS: Aspirin 81 MG TAB.CHEW PO SCH (08:42)
[2016-05-22 10:01] LABS: Basophils % 0.2 %; Eosinophils # 0.1 K/mcL (0.0-0.6); Eosinophils % 0.3 %; Hematocrit 32.7 % (37.5-50.1); Hemoglobin 11.2 g/dL (12.9-16.9); Immature Granulocytes % 1.4 % (0-4); Lymphocytes # 0.9 K/mcL (0.6-4.6); Lymphocytes % 5.4 %; Mean Corpuscular HGB Conc 34.3 g/dL (31.6-35.5); Mean Corpuscular Hemoglobin 33.6 pg (28.0-33.3); Mean Corpuscular Volume 98.2 fL (83.0-100.0); Mean Platelet Volume 11.2 fL (9.4-12.4); Monocytes # 1.3 K/mcL (0.0-1.3); Monocytes % 7.4 %; Neutrophils # 14.8 K/mcL (1.6-8.9); Platelet Count 202 K/mcL (140-400); Red Blood Count 3.33 M/mcL (4.19-5.50); Red Cell Distribution Width 17.1 % (11.5-14.5); Segmented Neutrophils % 85.3 %
[2016-05-22] MEDS ORDERED: *HR* Phytonadione 10 MG/ML AMPUL SQ ONE (10:48)
--- NOTE | 2016-05-22 10:55 | Palliative Progress Note ---
<Nolan Barbosa - Last Filed: 05/22/16 10:53> Date of Encounter: 05/22/16 Time of Encounter: 10:53 - Assessment and plan (1) Goals of care, counseling/discussion Current Visit: No Status: Acute Assessment and plan: Continued discussion regarding goals of care from yesterday. Patient and family continue to want to proceed with biliary stent placement for palliative measures. This is certainly reasonable and we will proceed with this per Dr. Melton. Family continues to have questions regarding hospice and these questions were addressed. Once the biliary stent placement is taking place we will reassess the family's goals of care and pursue the treatment plan with the desire. Patient remains a do not comfort care arrest/DO NOT INTUBATE. (2) Atrial flutter with rapid ventricular response Current Visit: Yes Status: Acute Assessment and plan: Heart rate under good control this time but did have episodes of tachycardia last night for which she was restarted on the Cardizem drip. Further management per primary team. (3) Hyperbilirubinemia Current Visit: No Status: Acute Assessment and plan: Remain significantly elevated with significant jaundice. Plan for biliary stent placement once the patient is medically optimized. Further management per primary service and gastroenterology. (4) Metastatic colon cancer to liver Current Visit: Yes Status: Acute Assessment and plan: Family is wishing to back off from aggressive treatment at this time. Once palliative stent is placed as above we will reassess goals of care. - Time Spent With Patient Total time spent is greater than 50% in coordination of care (as documented) at patient's floor/unit and/or counseling patient: - Subjective Interval history: Patient seen and examined at bedside. Patient has no complaints at this time. He denies any pain, shortness of breath, anxiety, nausea, vomiting. He is eating and drinking well. - Constitutional Vitals: Abnormal lab results WBC 17.4 K/mcL (4.3-11.1) H D 05/22/16 09:27 RBC 3.33 M/mcL (4.19-5.50) L 05/22/16 09:27 Hgb 11.2 g/dL (12.9-16.9) L D 05/22/16 09:27 Hct 32.7 % (37.5-50.1) L 05/22/16 09:27 MCH 33.6 pg (28.0-33.3) H 05/22/16 09:27 RDW 17.1 % (11.5-14.5) H 05/22/16 09:27 Neutrophils # 14.8 K/mcL (1.6-8.9) H 05/22/16 09:27 PT 24.0 Seconds (9.4-12.1) H 05/22/16 06:51 APTT 38.2 Seconds (26.0-36.0) H 05/21/16 05:41 Chloride 111 mEq/L (98-109) H 05/22/16 06:51 Glucose 111 mg/dL (70-99) H 05/22/16 06:51 Calcium 8.2 mg/dL (8.6-10.8) L 05/22/16 06:51 Iron 32 mcg/dL (65-175) L 05/21/16 05:41 % Saturation 19 % (20-55) L 05/21/16 05:41 Transferrin 123 mg/dL (174-364) L 05/21/16 05:41 Total Bilirubin 22.7 mg/dL (0.2-1.2) H 05/22/16 06:51 Direct Bilirubin 16.1 mg/dL (0.0-0.5) H D 05/21/16 05:41 Indirect Bilirubin 6.2 mg/dL (0.0-1.2) H 05/21/16 05:41 AST 195 Units/L (5-34) H 05/22/16 06:51 ALT 121 Units/L (0-55) H 05/22/16 06:51 Alkaline Phosphatase 916 Units/L (38-126) H 05/22/16 06:51 Serum Total Protein 5.7 g/dL (6.0-8.3) L 05/22/16 06:51 Albumin 1.7 g/dL (3.5-5.0) L 05/22/16 06:51 Globulin 4.0 g/dL (2.4-3.5) H 05/22/16 06:51 Albumin/Globulin Ratio 0.4 (1.1-2.2) L 05/22/16 06:51 Vitamin B12 > 2000 pg/mL (213-816) H 05/21/16 05:41 Nasal Screen MRSA (PCR) Positive (Negative) A 05/21/16 11:48 - Eye Eye exam: Present: scleral icterus - ENT ENT exam: Present: mucous membranes moist - Respiratory Respiratory exam: Present: CTAB. Absent: rales, rhonchi, wheezes - Cardiovascular Cardiovascular exam: Present: irregular rhythm. Absent: gallop, rubs, systolic murmur, tachycardia - GI/Abdominal GI/Abdominal exam: Present: normal bowel sounds, soft. Absent: distended, tenderness - Extremities Exam Extremities exam: Absent: pedal edema - Neurological Exam Neurological exam: Present: alert, CN II-XII intact, oriented X3, no focal deficits Palliative Quality Palliative Quality: Screen for Code Status: Yes, Screen for Goals of Care: Yes, Screen for Pain: Yes, If Pain Regimen Started, Initiate Bowel Regimen: NA, Screen for Nausea/Vomitting: Yes - Labs CBC & Chem 7: 05/22/16 09:27 05/22/16 06:51 Labs: Laboratory Results - last 24 hr 05/21/16 05/21/16 05/21/16 05:41 05:41 05:41 WBC RBC Hgb Hct MCV MCH MCHC RDW Plt Count MPV Immature Gran % Seg Neutrophils % Lymphocytes % Monocytes % Eosinophils % Basophils % Neutrophils # Lymphocytes # Monocytes # Eosinophils # Basophils # PT INR Sodium 141 Potassium 3.7 Chloride 112 H Carbon Dioxide 23 BUN 25 Creatinine 0.92 Est GFR ( Amer) > 60 Est GFR (Non-Af Amer) > 60 BUN/Creatinine Ratio 27 H Glucose 128 H Calculated Osmolality 298 Calcium 8.4 L Magnesium 1.7 Iron 32 L % Saturation 19 L Transferrin 123 L Total Bilirubin 22.3 H Direct Bilirubin 16.1 H D Indirect Bilirubin 6.2 H AST 168 H ALT 103 H Alkaline Phosphatase 734 H Serum Total Protein 5.1 L Albumin 1.6 L Globulin 3.5 Albumin/Globulin Ratio 0.5 L Vitamin B12 > 2000 H Folate 14.6 Nasal Screen MRSA (PCR) Specimen Rejected Blood Type A POSITIVE Antibody Screen NEGATIVE 05/21/16 05/22/16 05/22/16 11:48 06:51 06:51 WBC RBC Hgb Hct MCV MCH MCHC RDW Plt Count MPV Immature Gran % Seg Neutrophils % Lymphocytes % Monocytes % Eosinophils % Basophils % Neutrophils # Lymphocytes # Monocytes # Eosinophils # Basophils # PT 24.0 H INR 2.2 Sodium 142 Potassium 3.6 Chloride 111 H Carbon Dioxide 21 BUN 21 Creatinine 0.90 Est GFR ( Amer) > 60 Est GFR (Non-Af Amer) > 60 BUN/Creatinine Ratio 23 Glucose 111 H Calculated Osmolality 298 Calcium 8.2 L Magnesium Iron % Saturation Transferrin Total Bilirubin 22.7 H Direct Bilirubin Indirect Bilirubin AST 195 H ALT 121 H Alkaline Phosphatase 916 H Serum Total Protein 5.7 L Albumin 1.7 L Globulin 4.0 H Albumin/Globulin Ratio 0.4 L Vitamin B12 Folate Nasal Screen MRSA (PCR) Positive A Specimen Rejected Blood Type Antibody Screen 05/22/16 05/22/16 06:51 09:27 WBC 17.4 H D RBC 3.33 L Hgb 11.2 L D Hct 32.7 L MCV 98.2 MCH 33.6 H MCHC 34.3 RDW 17.1 H Plt Count 202 MPV 11.2 Immature Gran % 1.4 Seg Neutrophils % 85.3 Lymphocytes % 5.4 Monocytes % 7.4 Eosinophils % 0.3 Basophils % 0.2 Neutrophils # 14.8 H Lymphocytes # 0.9 Monocytes # 1.3 Eosinophils # 0.1 Basophils # 0.0 PT INR Sodium Potassium Chloride Carbon Dioxide BUN Creatinine Est GFR ( Amer) Est GFR (Non-Af Amer) BUN/Creatinine Ratio Glucose Calculated Osmolality Calcium Magnesium Iron % Saturation Transferrin Total Bilirubin Direct Bilirubin Indirect Bilirubin AST ALT Alkaline Phosphatase Serum Total Protein Albumin Globulin Albumin/Globulin Ratio Vitamin B12 Folate Nasal Screen MRSA (PCR) Specimen Rejected Miscellaneous Blood Type Antibody Screen - ABG Interpretation ABG results: PT/INR, D-dimer PT 24.0 Seconds (9.4-12.1) H 05/22/16 06:51 Consult Discharge Plan - Plan Referrals: Derik Alvarenga Jr, MD [Primary Care Provider] - ([facility] going to [facility]) <Seth Barrera - Last Filed: 05/22/16 14:36> - Time Spent With Patient Total time spent is greater than 50% in coordination of care (as documented) at patient's floor/unit and/or counseling patient: - Constitutional Vitals: Abnormal lab results WBC 17.4 K/mcL (4.3-11.1) H D 05/22/16 09:27 RBC 3.33 M/mcL (4.19-5.50) L 05/22/16 09:27 Hgb 11.2 g/dL (12.9-16.9) L D 05/22/16 09:27 Hct 32.7 % (37.5-50.1) L 05/22/16 09:27 MCH 33.6 pg (28.0-33.3) H 05/22/16 09:27 RDW 17.1 % (11.5-14.5) H 05/22/16 09:27 Neutrophils # 14.8 K/mcL (1.6-8.9) H 05/22/16 09:27 PT 24.0 Seconds (9.4-12.1) H 05/22/16 06:51 APTT 38.2 Seconds (26.0-36.0) H 05/21/16 05:41 Chloride 111 mEq/L (98-109) H 05/22/16 06:51 Glucose 111 mg/dL (70-99) H 05/22/16 06:51 Calcium 8.2 mg/dL (8.6-10.8) L 05/22/16 06:51 Iron 32 mcg/dL (65-175) L 05/21/16 05:41 % Saturation 19 % (20-55) L 05/21/16 05:41 Transferrin 123 mg/dL (174-364) L 05/21/16 05:41 Total Bilirubin 22.7 mg/dL (0.2-1.2) H 05/22/16 06:51 Direct Bilirubin 16.1 mg/dL (0.0-0.5) H D 05/21/16 05:41 Indirect Bilirubin 6.2 mg/dL (0.0-1.2) H 05/21/16 05:41 AST 195 Units/L (5-34) H 05/22/16 06:51 ALT 121 Units/L (0-55) H 05/22/16 06:51 Alkaline Phosphatase 916 Units/L (38-126) H 05/22/16 06:51 Serum Total Protein 5.7 g/dL (6.0-8.3) L 05/22/16 06:51 Albumin 1.7 g/dL (3.5-5.0) L 05/22/16 06:51 Globulin 4.0 g/dL (2.4-3.5) H 05/22/16 06:51 Albumin/Globulin Ratio 0.4 (1.1-2.2) L 05/22/16 06:51 Vitamin B12 > 2000 pg/mL (213-816) H 05/21/16 05:41 Nasal Screen MRSA (PCR) Positive (Negative) A 05/21/16 11:48 - Attending Attestation I examined this patient and my medical decision-making was reviewed with the [employer]/PA/Advanced Practice Nurse/Resident Physician. I agree with the documented findings, disposition and treatment plan as described except to the extent set forth below. - Labs CBC & Chem 7: 05/22/16 09:27 05/22/16 06:51 Labs: Laboratory Results - last 24 hr 05/21/16 05/22/16 05/22/16 05:41 06:51 06:51 WBC RBC Hgb Hct MCV MCH MCHC RDW Plt Count MPV Immature Gran % Seg Neutrophils % Lymphocytes % Monocytes % Eosinophils % Basophils % Neutrophils # Lymphocytes # Monocytes # Eosinophils # Basophils # PT 24.0 H INR 2.2 Sodium 142 Potassium 3.6 Chloride 111 H Carbon Dioxide 21 BUN 21 Creatinine 0.90 Est GFR ( Amer) > 60 Est GFR (Non-Af Amer) > 60 BUN/Creatinine Ratio 23 Glucose 111 H Calculated Osmolality 298 Calcium 8.2 L Total Bilirubin 22.7 H AST 195 H ALT 121 H Alkaline Phosphatase 916 H Serum Total Protein 5.7 L Albumin 1.7 L Globulin 4.0 H Albumin/Globulin Ratio 0.4 L Specimen Rejected Blood Type A POSITIVE Antibody Screen NEGATIVE 05/22/16 05/22/16 06:51 09:27 WBC 17.4 H D RBC 3.33 L Hgb 11.2 L D Hct 32.7 L MCV 98.2 MCH 33.6 H MCHC 34.3 RDW 17.1 H Plt Count 202 MPV 11.2 Immature Gran % 1.4 Seg Neutrophils % 85.3 Lymphocytes % 5.4 Monocytes % 7.4 Eosinophils % 0.3 Basophils % 0.2 Neutrophils # 14.8 H Lymphocytes # 0.9 Monocytes # 1.3 Eosinophils # 0.1 Basophils # 0.0 PT INR Sodium Potassium Chloride Carbon Dioxide BUN Creatinine Est GFR ( Amer) Est GFR (Non-Af Amer) BUN/Creatinine Ratio Glucose Calculated Osmolality Calcium Total Bilirubin AST ALT Alkaline Phosphatase Serum Total Protein Albumin Globulin Albumin/Globulin Ratio Specimen Rejected Miscellaneous Blood Type Antibody Screen - ABG Interpretation ABG results: PT/INR, D-dimer PT 24.0 Seconds (9.4-12.1) H 05/22/16 06:51
[2016-05-22] MEDS: Metoprolol XL (24 HR) Succ 25 MG TAB.ER.24H PO SCH (11:36)
--- NOTE | 2016-05-22 14:36 | Internal Med Progress Note ---
<Андрей Haley - Last Filed: 05/22/16 14:34> Date of Encounter: 05/22/16 Time of Encounter: 14:34 - Assessment and plan (1) Secondary malignant neoplasm of liver Current Visit: Yes Status: Acute Assessment and plan: Patient has metastatic colon cancer with metastatic disease to the liver. Clinical picture demonstrates a cachectic male that his jaundice and urostomy bag with orange urine. Laboratory results are significant for biliary obstruction with total bili 23.3, direct bili 16.1 and direct bili 6.2, AST 160 a.l. T103 and alkaline phosphatase 734. History of metal stents in biliary system. Plan: - Patient undergo ERCP with biliary stent. Possibly 05/23/2016 (2) Jaundice Current Visit: No Status: Acute Assessment and plan: Patient presented for planned ERCP to relieve obstructive jaundice with biliary stenting due to metastatic liver disease. Unable to complete procedure due to atrial flutter with RVR. Patient is now rate controlled with Cardizem and plan for biliary stenting tomorrow. Dr. Melton aware and on case. (3) Atrial flutter with rapid ventricular response Current Visit: Yes Status: Acute Assessment and plan: There was difficulty with rate control overnight patient was placed on Cardizem drip and switch back to Cardizem CD 120 mg by mouth daily. Heart rate controlled currently. Plan: - Continue Cardizem CD 120 in the morning. - Continue cardiac monitoring. (4) Hypokalemia Current Visit: Yes Status: Acute Assessment and plan: Potassium 3.6, received by mouth potassium today. (5) Supratherapeutic INR Current Visit: Yes Status: Acute Assessment and plan: Current PT/INR 2.2, plan to improve with vitamin K 2 doses, fresh frozen plasma this evening. - Subjective Interval history: Mr. Cox 80-year-old male with known metastatic colon cancer and obstructive jaundice seen and evaluated patient presents pointing. He is awake alert and interactive and skin and sclera are jaundice. He denies any discomfort, pain, blurry vision, itching or scratching, burning or any other discomforts at this time. He is unable to have his procedure today after his PT/INR did not improve over night. He understands and agrees for planned INR tomorrow. - Constitutional Vitals: Temp Pulse Resp BP Pulse Ox 98.2 F 62 16 97/51 98 05/22/16 11:15 05/22/16 11:15 05/22/16 11:15 05/22/16 11:15 05/22/16 11:15 General appearance: Present: A&O X 3, pleasant, no acute distress, underweight - Head Head exam: Present: atraumatic, normocephalic - Eye Eye exam: Present: PERRL, scleral icterus, conjuntiva pink Pupils: Present: PERRL - ENT ENT exam: Present: mucous membranes moist - Neck Neck exam general surgery: Present: supple, trachea midline. Absent: lymphadenopathy - Respiratory Respiratory exam: Present: CTAB. Absent: accessory muscle use, rales, rhonchi, wheezes - Cardiovascular Cardiovascular exam: Present: RRR, +S1, +S2. Absent: diastolic murmur, gallop, rubs, systolic murmur - GI/Abdominal GI/Abdominal exam: Present: normal bowel sounds, soft, no peritoneal signs. Absent: distended, tenderness - Extremities Exam Extremities exam: Present: warm, radial pulses palpable and symetrical. Absent : calf tenderness, cyanotic, pedal edema - Neurological Exam Neurological exam: Present: alert, no focal deficits, strengths equal and symetr throughout. Absent: pronater drift, facial droop, speech deficit - Psychiatric Psychiatric exam: Present: normal affect, normal mood - Skin Additional comments: Jaundice. Internal Medicine: Result - Labs CBC & Chem 7: 05/22/16 09:27 05/22/16 06:51 Labs: Short CBC 05/22/16 Range/Units 09:27 WBC 17.4 H D (4.3-11.1) K/mcL Hgb 11.2 L D (12.9-16.9) g/dL Hct 32.7 L (37.5-50.1) % Plt Count 202 (140-400) K/mcL Neutrophils # 14.8 H (1.6-8.9) K/mcL BMP 05/22/16 06:51 Sodium 142 Potassium 3.6 Chloride 111 H Carbon Dioxide 21 BUN 21 Creatinine 0.90 Glucose 111 H Calcium 8.2 L Liver Function 05/22/16 Range/Units 06:51 Total Bilirubin 22.7 H (0.2-1.2) mg/dL AST 195 H (5-34) Units/L ALT 121 H (0-55) Units/L Alkaline Phosphatase 916 H (38-126) Units/L Albumin 1.7 L (3.5-5.0) g/dL - ABG Interpretation ABG results: PT/INR, D-dimer PT 24.0 Seconds (9.4-12.1) H 05/22/16 06:51 - VTE Documentation of Mechanical Device: Graduated compression elastic hosiery Consult Discharge Plan - Plan Referrals: Derik Alvarenga Jr, MD [Primary Care Provider] - (most likely going to [facility]) <Teja Samson - Last Filed: 05/22/16 18:48> - Assessment and plan (1) Afib Current Visit: No Status: Chronic Assessment and plan: Currently on card drip till after ERCP. Qualifiers: Atrial fibrillation type: persistent Qualified Code(s): I48.1 - Persistent atrial fibrillation (2) Secondary malignant neoplasm of liver Current Visit: Yes Status: Acute (3) Supratherapeutic INR Current Visit: Yes Status: Acute (4) Jaundice Current Visit: No Status: Acute (5) Hypokalemia Current Visit: No Status: Acute - Constitutional Vitals: Temp Pulse Resp BP Pulse Ox 99 F 84 16 114/67 97 05/22/16 16:04 05/22/16 16:04 05/22/16 16:04 05/22/16 16:04 05/22/16 16:04 Internal Medicine: Result - Labs CBC & Chem 7: 05/22/16 09:27 05/22/16 06:51 Labs: Short CBC 05/22/16 Range/Units 09:27 WBC 17.4 H D (4.3-11.1) K/mcL Hgb 11.2 L D (12.9-16.9) g/dL Hct 32.7 L (37.5-50.1) % Plt Count 202 (140-400) K/mcL Neutrophils # 14.8 H (1.6-8.9) K/mcL BMP 05/22/16 06:51 Sodium 142 Potassium 3.6 Chloride 111 H Carbon Dioxide 21 BUN 21 Creatinine 0.90 Glucose 111 H Calcium 8.2 L Liver Function 05/22/16 Range/Units 06:51 Total Bilirubin 22.7 H (0.2-1.2) mg/dL AST 195 H (5-34) Units/L ALT 121 H (0-55) Units/L Alkaline Phosphatase 916 H (38-126) Units/L Albumin 1.7 L (3.5-5.0) g/dL - ABG Interpretation ABG results: PT/INR, D-dimer PT 24.0 Seconds (9.4-12.1) H 05/22/16 06:51 - Attending Attestation I examined this patient and my medical decision-making was reviewed with the Resident Physician on 05/22/16. I agree with the documented findings, disposition and treatment plan as described except to the extent set forth below. Mr. Correa is currently admitted for acute obstructive jaundice due to colon cancer. He is moderate to high risk due to need for blood products and potential for worsening clinical status. Mr. Correa is resting comfortably at this time. Denies pain. Some nausea. No fever or chills. Exam Alert. Jaundice. Heart irreg Lungs clear I/P 1. A fib - rapid response again. Back on card drip. Will transition to PO after ERCP 2. Jaundice 3. Metastatic colon ca Further diagnoses and plan as above.
[2016-05-22] MEDS ORDERED: 0.9 % Sodium Chloride 500 ML ONE (17:56)
--- NOTE | 2016-05-22 17:57 | Gastroenterology Consult Note ---
Date of Encounter: 05/22/16 Time of Encounter: 14:00 - Time Spent With Patient Total time spent is greater than 50% in coordination of care (as documented) at patient's floor/unit and/or counseling patient: GI History of Present Illness - Data of Consult Requesting Physician: Teja Samson DO - Consult Narrative History of present illness: Mr. Correa is a 80 year old male Past Med Surg Social Fam HX - Past Medical History Medical history: arthritis, atrial fibrillation, cancer (bladder cancer s/p cystectomy with urostomy. Colon cancer s/p colectomy with ileostomy and reversal, now metastatic to Lungs and liver), GERD, GI bleed, hepatitis, liver disease (metastasis to liver with obstructive jaundice), malignancy, osteoporosis, renal disease, thyroid disease, TIA, other Psychiatric history: anxiety, depression - Past Surgical History Surgical History: appendectomy, cancer surgery, cataract, colectomy, herniorrhaphy, ureteral stent - Social History Smoking Status: Former smoker Smokeless Tobacco Status: No Alcohol use: none Drug use: none - Family History Father Living Status: Age at : 75 Cause of : cardiac Mother History Unknown: Yes Adopted: No Family Member Ethnicity: Non- Living Status: Hx Family Cardiac Disorders: No Hx Family Respiratory Disorders: No Hx Family Cancer: Yes (bladder CA) Hx Family GI Disorders: No Hx Family Endocrine Disorder: No Hx Family Neuromuscular Disorders: No Hx Family Neurologic Disorders: No Hx Family HEENT Disorders: No Hx Family Autoimmune Disorders: No - Constitutional Vitals: Temp Pulse Resp BP Pulse Ox 99 F 84 16 114/67 97 05/22/16 16:04 05/22/16 16:04 05/22/16 16:04 05/22/16 16:04 05/22/16 16:04 General appearance: Present: cooperative, A&O X 3, no acute distress, answers questions appropriately Results - Labs CBC & Chem 7: 05/22/16 09:27 05/22/16 06:51 Labs: Last Result Calcium 8.2 mg/dL (8.6-10.8) L 05/22/16 06:51 Iron 32 mcg/dL (65-175) L 05/21/16 05:41 % Saturation 19 % (20-55) L 05/21/16 05:41 Transferrin 123 mg/dL (174-364) L 05/21/16 05:41 Troponin I 0.01 ng/mL (0-0.03) 05/20/16 13:38 Vitamin B12 > 2000 pg/mL (213-816) H 05/21/16 05:41 Folate 14.6 ng/mL (7.0-31.4) 05/21/16 05:41 Entire Visit Hgb 11.2 g/dL (12.9-16.9) L D 05/22/16 09:27 Hct 32.7 % (37.5-50.1) L 05/22/16 09:27 PT 24.0 Seconds (9.4-12.1) H 05/22/16 06:51 Total Bilirubin 22.7 mg/dL (0.2-1.2) H 05/22/16 06:51 AST 195 Units/L (5-34) H 05/22/16 06:51 ALT 121 Units/L (0-55) H 05/22/16 06:51 Folate 14.6 ng/mL (7.0-31.4) 05/21/16 05:41 - ABG ABG results: PT/INR, D-dimer PT 24.0 Seconds (9.4-12.1) H 05/22/16 06:51 Consult Discharge Plan - Plan Referrals: Derik Alvarenga Jr, MD [Primary Care Provider] - ([facility] going [facility]) - Attending Attestation Pt seen, No active compalints Deeply jaundice. PLan is for ERCP with longer stents to help with his jaundice. D/W Chapin. FFP and Vit K for high INR due to vit K maabsorptions
[2016-05-23] MEDS ORDERED: 0.9 % Sodium Chloride 500 ML ONE (00:32)
[2016-05-23] MEDS ORDERED: *HR* Metoprolol 5 MG/5 ML VIAL IVP ONE ×2 (04:00→08:10)
[2016-05-23] MEDS: Aspirin 81 MG TAB.CHEW PO SCH (07:55)
[2016-05-23] MEDS: Lactobacillus 1 EACH CAP.SPRINK PO SCH (07:55)
[2016-05-23] MEDS: Metoprolol XL (24 HR) Succ 25 MG TAB.ER.24H PO SCH (07:55)
--- NOTE | 2016-05-23 09:36 | Internal Med Progress Note ---
<Андрей Haley - Last Filed: 05/23/16 13:56> Date of Encounter: 05/23/16 Time of Encounter: 09:34 - Assessment and plan (1) Secondary malignant neoplasm of liver Current Visit: Yes Status: Acute Assessment and plan: Patient has metastatic colon cancer with metastatic disease to the liver. Clinical picture demonstrates a cachectic male that his jaundice and urostomy bag with orange urine. History of metal stents in biliary system. Labs today demonstrate total bili 20.4, AST 16, ALT 100, alk phosphatase 755 Plan: - Patient undergo ERCP with biliary stent. Possibly tomorrow if heart rate is controlled. (2) Jaundice Current Visit: No Status: Acute Assessment and plan: Patient presented for planned ERCP to relieve obstructive jaundice with biliary stenting due to metastatic liver disease. Unable to complete procedure due to atrial flutter with RVR. Rate control was adjusted to now starting Toprol-XL 50 mg by mouth daily received a dose of 25 mg metoprolol by mouth. This morning he received 5 mg Lopressor IVP. The patient is stable overnight she may undergo procedure tomorrow in the OR. (3) Atrial flutter with rapid ventricular response Current Visit: Yes Status: Acute Assessment and plan: Mr. Cox continued to have atrial fibrillation with RVR overnight he responded well to Lopressor 2.5 with improvement in his heart rate. He rebounded back into rapid ventricular rate this morning was provided Lopressor 5 with improvements in his rate. It appears the response better to beta blockers and the Cardizem and will adjust his home doses of metoprolol. Made switches to Toprol-XL 50 mg daily, gave 25 mg metoprolol today as patient had 25 mg Toprol-XL. Cardiology following, discussed with Cardiology. Plan: - Increase Toprolol XL to 50mg daily. Continue cardiac monitoring. - Continue cardiac monitoring. (4) Hypokalemia Current Visit: Yes Status: Acute Assessment and plan: Potassium 2.9 after receiving replacement therapy yesterda. Plan: 40meq potassium IV today One dose 40meq PO potassium Recheck potassium in am. (5) Supratherapeutic INR Current Visit: Yes Status: Acute Assessment and plan: Current PT/INR 2.2, he has received 2 units FFP, vitamin K. Recheck PT/INR this am was 1.5. Plan: -Recheck PT/INR in a.m. - Subjective Interval history: Mr. Cox 80-year-old male with known metastatic colon cancer and obstructive jaundice seen and evaluated patient presents pointing. He is awake alert and interactive and skin and sclera are jaundice. He denies any discomfort, pain, blurry vision, itching or scratching, burning or any other discomforts at this time. He is awaiting his procedure. His is at bedside and questions were answered today. - Constitutional Vitals: Temp Pulse Resp BP Pulse Ox 99.1 F 134 16 118/67 96 05/23/16 08:10 05/23/16 08:10 05/23/16 08:10 05/23/16 08:10 05/23/16 08:10 General appearance: Present: A&O X 3, pleasant, no acute distress, underweight - Head Head exam: Present: atraumatic, normocephalic - Eye Eye exam: Present: conjunctival injection, PERRL, scleral icterus Pupils: Present: PERRL - ENT ENT exam: Present: mucous membranes moist - Neck Neck exam general surgery: Present: supple, trachea midline. Absent: lymphadenopathy - Respiratory Respiratory exam: Present: CTAB. Absent: accessory muscle use, rales, rhonchi, wheezes - Cardiovascular Cardiovascular exam: Present: irregular rhythm. Absent: diastolic murmur, gallop, rubs, systolic murmur Additional comments: rate controlled. - GI/Abdominal GI/Abdominal exam: Present: normal bowel sounds, soft, no peritoneal signs. Absent: distended, tenderness Additional comments: urostomy bag with appropriate output. - Extremities Exam Extremities exam: Present: warm, radial pulses palpable and symetrical. Absent : calf tenderness, cyanotic, pedal edema Additional comments: thin, with poor musculature. - Neurological Exam Neurological exam: Present: alert, no focal deficits. Absent: pronater drift, facial droop, speech deficit - Psychiatric Psychiatric exam: Present: flat affect Internal Medicine: Result - Labs CBC & Chem 7: 05/23/16 10:22 05/23/16 10:22 Labs: Short CBC 05/22/16 Range/Units 09:27 WBC 17.4 H D (4.3-11.1) K/mcL Hgb 11.2 L D (12.9-16.9) g/dL Hct 32.7 L (37.5-50.1) % Plt Count 202 (140-400) K/mcL Neutrophils # 14.8 H (1.6-8.9) K/mcL - ABG Interpretation ABG results: PT/INR, D-dimer PT 24.0 Seconds (9.4-12.1) H 05/22/16 06:51 - VTE Documentation of Mechanical Device: Graduated compression elastic hosiery Consult Discharge Plan - Plan Referrals: Derik Alvarenga Jr, MD [Primary Care Provider] - (Not sure at this time of patients dicharge plans. Home vs ECF) <Teja Samson - Last Filed: 05/23/16 15:16> - Assessment and plan (1) Afib Current Visit: No Status: Chronic Qualifiers: Atrial fibrillation type: persistent Qualified Code(s): I48.1 - Persistent atrial fibrillation (2) Secondary malignant neoplasm of liver Current Visit: Yes Status: Acute (3) Supratherapeutic INR Current Visit: Yes Status: Acute (4) Jaundice Current Visit: No Status: Acute (5) Hypokalemia Current Visit: No Status: Acute (6) Anemia Current Visit: Yes Status: Acute Qualifiers: Anemia type: other cause Other causes of anemia: chronic disease, neoplastic Qualified Code(s): D63.0 - Anemia in neoplastic disease (7) Hypothyroidism Current Visit: No Status: Chronic Qualifiers: Hypothyroidism type: acquired Qualified Code(s): E03.9 - Hypothyroidism, unspecified (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 - Constitutional Vitals: Temp Pulse Resp BP Pulse Ox 97.7 F 100 16 101/56 99 05/23/16 11:29 05/23/16 11:29 05/23/16 11:29 05/23/16 11:29 05/23/16 11:29 Internal Medicine: Result - Labs CBC & Chem 7: 05/23/16 10:22 05/23/16 10:22 Labs: Short CBC 05/23/16 Range/Units 10:22 WBC 11.7 H (4.3-11.1) K/mcL Hgb 8.6 L D (12.9-16.9) g/dL Hct 26.3 L (37.5-50.1) % Plt Count 160 (140-400) K/mcL Neutrophils # 10.3 H (1.6-8.9) K/mcL BMP 05/23/16 10:22 Sodium 144 Potassium 2.9 L Chloride 113 H Carbon Dioxide 23 BUN 19 Creatinine 0.89 Glucose 85 Calcium 8.6 Liver Function 05/23/16 Range/Units 10:22 Total Bilirubin 20.4 H (0.2-1.2) mg/dL AST 161 H (5-34) Units/L ALT 100 H (0-55) Units/L Alkaline Phosphatase 755 H (38-126) Units/L Albumin 1.7 L (3.5-5.0) g/dL - ABG Interpretation ABG results: PT/INR, D-dimer PT 16.1 Seconds (9.4-12.1) H 05/23/16 10:22 - Attending Attestation I examined this patient and my medical decision-making was reviewed with the Resident Physician on 05/23/16. I agree with the documented findings, disposition and treatment plan as described except to the extent set forth below. Mr. Correa is currently admitted for obstructive jaundice and acute atrial fib/ flutter with RVR. He is moderate to high risk due to persistent cardiac issues and biliary obstruction. Mr. Correa is resting comfortably at this time. He was placed back on card drip overnight as his heartrate was again in 140s. Given Lopressor and now improved. Exam Alert. Comfortable Heart irreg - not tachy now Lungs diminished I/P 1. Rapid a fib - better with beta chery 2. Obstructive jaundice Further diagnoses and plan as above.
--- NOTE | 2016-05-23 10:20 | Anesthesia Evaluation PreOp ---
Date of Encounter: 05/23/16 Time of Encounter: 10:17 - Past History Planned Operation: ERCP Cardiac History: Arrhythmia (Afib) Other Medical History: Other (pancreatic CA) Anesthesia History: Past Anesthesia (ERCP, Exp. Lap. Colon resection, APPY) Alcohol Use: none Drug use: none Medications and Allergies Levothyroxine [Synthroid] 50 mcg PO DAILY 10/06/14 [History] Fludrocortisone Acetate [Florinef] 0.1 mg PO DAILY #30 tablet 12/07/15 [Rx] Lactobacillus Acidophilus [Acidophilus Lactobacillus] 1 each PO DAILY #30 capsule 03/24/16 [Rx] Prochlorperazine Maleate [Compazine] 10 mg PO Q6HR PRN 04/02/16 [History] Aspirin 81 mg PO DAILY 04/10/16 [History] DiphenhydraMINE [Benadryl] 25 mg PO Q6HR PRN 04/10/16 [History] Guaifenesin [Mucinex] 600 mg PO BID PRN 04/10/16 [History] Oxycodone HCl/Acetaminophen [Percocet 5-325 mg Tablet] 1 tab PO Q6H PRN [History] HYDROcodone/Acet 10/325 mg [[place] 10-325 mg] 1 tab PO Q6HR PRN 04/28/16 [History ] Lactose-Reduced Food [Boost] 237 ml PO QID 04/28/16 [History] Trifluridine/Tipiracil HCl [[place] 15 mg-6.14 mg Tablet] 3 each PO BID #60 tablet 05/01/16 [Rx] Trifluridine/Tipiracil HCl [[place]f 20 mg-8.19 mg Tablet] 3 tab PO BID #60 tablet 05/01/16 [Rx] GuaiFENesin/Codeine [Robitussin w/Codeine] 10 ml PO Q6HR PRN #300 liquid [Rx] Metoprolol XL (24 HR) Succ [Toprol XL] 25 mg PO DAILY 05/16/16 [History] Sertraline [Zoloft] 100 mg PO HS #90 tablet 05/19/16 [Rx] Nitroglycerin [Nitrostat] 0.4 mg SL Q5M PRN 05/20/16 [History] Allergies Penicillins [PCN] Allergy (Intermediate, Verified 05/20/16 11:04) Rash Sulfa (Sulfonamide Antibiotics) Allergy (Mild, Verified 05/20/16 11:04) Rash - Meds/Allergy Pre-op Review Medications Reviewed: Yes Allergies Reviewed: Yes Anesthesia Results - Labs 05/22/16 09:27 05/22/16 06:51
[2016-05-23 10:44] LABS: Basophils % 0.2 %; Eosinophils # 0.1 K/mcL (0.0-0.6); Eosinophils % 0.7 %; Hematocrit 26.3 % (37.5-50.1); Immature Platelets 3.4 % (1.1-6.1); Lymphocytes # 0.4 K/mcL (0.6-4.6); Lymphocytes % 3.2 %; Mean Corpuscular HGB Conc 32.7 g/dL (31.6-35.5); Mean Corpuscular Hemoglobin 32.8 pg (28.0-33.3); Mean Corpuscular Volume 100.4 fL (83.0-100.0); Mean Platelet Volume 10.6 fL (9.4-12.4); Monocytes # 0.9 K/mcL (0.0-1.3); Monocytes % 7.5 %; Neutrophils # 10.3 K/mcL (1.6-8.9); Platelet Count 160 K/mcL (140-400); Red Blood Count 2.62 M/mcL (4.19-5.50); Red Cell Distribution Width 17.1 % (11.5-14.5); Segmented Neutrophils % 87.4 %
[2016-05-23 10:53] LABS: INR 1.5; Prothrombin Time 16.1 Seconds (9.4-12.1)
[2016-05-23 10:57] LABS: Alanine Aminotransferase 100 Units/L (0-55); Albumin 1.7 g/dL (3.5-5.0); Albumin/Globulin Ratio 0.5 (1.1-2.2); Alkaline Phosphatase 755 Units/L (38-126); Aspartate Amino Transferase 161 Units/L (5-34); BUN/Creatinine Ratio 21 (6-26); Bilirubin,Total 20.4 mg/dL (0.2-1.2); Blood Urea Nitrogen 19 mg/dL (8-26); Calcium 8.6 mg/dL (8.6-10.8); Carbon Dioxide 23 mEq/L (19-29); Chloride 113 mEq/L (98-109); Globulin 3.5 g/dL (2.4-3.5); Glucose 85 mg/dL (70-99); Osmolality,Calculated 300 (280-300); Potassium 2.9 mEq/L (3.5-4.5); Sodium 144 mEq/L (136-145); Total Protein 5.2 g/dL (6.0-8.3); eGFR For African Americans > 60 (> 60); eGFR For Non-African Americans > 60 (> 60)
[2016-05-23 11:21] LABS: Hemoglobin 8.6 g/dL (12.9-16.9)
--- NOTE | 2016-05-23 11:47 | Palliative Progress Note ---
<GwenNolan gilbert - Last Filed: 05/23/16 11:45> Date of Encounter: 05/23/16 Time of Encounter: 11:45 - Assessment and plan (1) Goals of care, counseling/discussion Current Visit: No Status: Acute Assessment and plan: Continued discussion regarding goals of care from yesterday. Patient and family continue to want to proceed with biliary stent placement for palliative measures. This is certainly reasonable and we will proceed with this per Dr. Melton. Family continues to have questions regarding hospice and these questions were addressed. Once the biliary stent placement has occurred we will reassess the family's goals of care and pursue the treatment plan with the desire. Patient remains a do not comfort care arrest/DO NOT INTUBATE. (2) Atrial flutter with rapid ventricular response Current Visit: Yes Status: Acute Assessment and plan: Heart rate under good control this time but did have episodes of tachycardia last night for which she was restarted on the Cardizem drip. Further management per primary team. (3) Hyperbilirubinemia Current Visit: No Status: Acute Assessment and plan: Remain significantly elevated with significant jaundice. Plan for biliary stent placement once the patient is medically optimized. Further management per primary service and gastroenterology. (4) Metastatic colon cancer to liver Current Visit: Yes Status: Acute Assessment and plan: Family is wishing to back off from aggressive treatment at this time. Once palliative stent is placed as above we will reassess goals of care. - Time Spent With Patient Total time spent is greater than 50% in coordination of care (as documented) at patient's floor/unit and/or counseling patient: - Subjective Interval history: Patient seen and examined at bedside. Patient has no complaints at this time. He denies any pain, shortness of breath, anxiety, nausea, vomiting. He is eating and drinking well. - Constitutional Vitals: Abnormal lab results WBC 11.7 K/mcL (4.3-11.1) H 05/23/16 10:22 RBC 2.62 M/mcL (4.19-5.50) L 05/23/16 10:22 Hgb 8.6 g/dL (12.9-16.9) L D 05/23/16 10:22 Hct 26.3 % (37.5-50.1) L 05/23/16 10:22 MCV 100.4 fL (83.0-100.0) H 05/23/16 10:22 RDW 17.1 % (11.5-14.5) H 05/23/16 10:22 Neutrophils # 10.3 K/mcL (1.6-8.9) H 05/23/16 10:22 Lymphocytes # 0.4 K/mcL (0.6-4.6) L 05/23/16 10:22 PT 16.1 Seconds (9.4-12.1) H 05/23/16 10:22 APTT 38.2 Seconds (26.0-36.0) H 05/21/16 05:41 Potassium 2.9 mEq/L (3.5-4.5) L 05/23/16 10:22 Chloride 113 mEq/L (98-109) H 05/23/16 10:22 Iron 32 mcg/dL (65-175) L 05/21/16 05:41 % Saturation 19 % (20-55) L 05/21/16 05:41 Transferrin 123 mg/dL (174-364) L 05/21/16 05:41 Total Bilirubin 20.4 mg/dL (0.2-1.2) H 05/23/16 10:22 Direct Bilirubin 16.1 mg/dL (0.0-0.5) H D 05/21/16 05:41 Indirect Bilirubin 6.2 mg/dL (0.0-1.2) H 05/21/16 05:41 AST 161 Units/L (5-34) H 05/23/16 10:22 ALT 100 Units/L (0-55) H 05/23/16 10:22 Alkaline Phosphatase 755 Units/L (38-126) H 05/23/16 10:22 Serum Total Protein 5.2 g/dL (6.0-8.3) L 05/23/16 10:22 Albumin 1.7 g/dL (3.5-5.0) L 05/23/16 10:22 Albumin/Globulin Ratio 0.5 (1.1-2.2) L 05/23/16 10:22 Vitamin B12 > 2000 pg/mL (213-816) H 05/21/16 05:41 Nasal Screen MRSA (PCR) Positive (Negative) A 05/21/16 11:48 - Eye Eye exam: Present: PERRL, scleral icterus - ENT ENT exam: Present: mucous membranes moist - Respiratory Respiratory exam: Present: CTAB. Absent: rales, rhonchi, wheezes - Cardiovascular Cardiovascular exam: Present: RRR. Absent: gallop, rubs, systolic murmur - GI/Abdominal GI/Abdominal exam: Present: normal bowel sounds, soft. Absent: distended, tenderness - Extremities Exam Extremities exam: Absent: pedal edema - Neurological Exam Neurological exam: Present: alert, CN II-XII intact, oriented X3, no focal deficits - Skin Additional comments: Significant jaundice. Palliative Quality Palliative Quality: Screen for Code Status: Yes, Screen for Goals of Care: Yes, Screen for Pain: Yes, If Pain Regimen Started, Initiate Bowel Regimen: NA, Screen for Nausea/Vomitting: Yes - Labs CBC & Chem 7: 05/23/16 10:22 05/23/16 10:22 Labs: Laboratory Results - last 24 hr 05/21/16 05/23/16 05/23/16 05:41 10:22 10:22 WBC 11.7 H RBC 2.62 L Hgb 8.6 L D Hct 26.3 L MCV 100.4 H MCH 32.8 MCHC 32.7 RDW 17.1 H Plt Count 160 MPV 10.6 Immature Gran % 1.0 Seg Neutrophils % 87.4 Lymphocytes % 3.2 Monocytes % 7.5 Eosinophils % 0.7 Basophils % 0.2 Neutrophils # 10.3 H Lymphocytes # 0.4 L Monocytes # 0.9 Eosinophils # 0.1 Basophils # 0.0 Immature Plt Fraction 3.4 PT 16.1 H INR 1.5 Sodium Potassium Chloride Carbon Dioxide BUN Creatinine Est GFR ( Amer) Est GFR (Non-Af Amer) BUN/Creatinine Ratio Glucose Calculated Osmolality Calcium Total Bilirubin AST ALT Alkaline Phosphatase Serum Total Protein Albumin Globulin Albumin/Globulin Ratio Blood Type A POSITIVE Antibody Screen NEGATIVE 05/23/16 10:22 WBC RBC Hgb Hct MCV MCH MCHC RDW Plt Count MPV Immature Gran % Seg Neutrophils % Lymphocytes % Monocytes % Eosinophils % Basophils % Neutrophils # Lymphocytes # Monocytes # Eosinophils # Basophils # Immature Plt Fraction PT INR Sodium 144 Potassium 2.9 L Chloride 113 H Carbon Dioxide 23 BUN 19 Creatinine 0.89 Est GFR ( Amer) > 60 Est GFR (Non-Af Amer) > 60 BUN/Creatinine Ratio 21 Glucose 85 Calculated Osmolality 300 Calcium 8.6 Total Bilirubin 20.4 H AST 161 H ALT 100 H Alkaline Phosphatase 755 H Serum Total Protein 5.2 L Albumin 1.7 L Globulin 3.5 Albumin/Globulin Ratio 0.5 L Blood Type Antibody Screen - ABG Interpretation ABG results: PT/INR, D-dimer PT 16.1 Seconds (9.4-12.1) H 05/23/16 10:22 Consult Discharge Plan - Plan Referrals: Derik Alvarenga Jr, MD [Primary Care Provider] - ([facility] likely going to [facility]) <Seth Barrera - Last Filed: 05/23/16 11:49> - Time Spent With Patient Total time spent is greater than 50% in coordination of care (as documented) at patient's floor/unit and/or counseling patient: - Constitutional Vitals: Abnormal lab results WBC 11.7 K/mcL (4.3-11.1) H 05/23/16 10:22 RBC 2.62 M/mcL (4.19-5.50) L 05/23/16 10:22 Hgb 8.6 g/dL (12.9-16.9) L D 05/23/16 10:22 Hct 26.3 % (37.5-50.1) L 05/23/16 10:22 MCV 100.4 fL (83.0-100.0) H 05/23/16 10:22 RDW 17.1 % (11.5-14.5) H 05/23/16 10:22 Neutrophils # 10.3 K/mcL (1.6-8.9) H 05/23/16 10:22 Lymphocytes # 0.4 K/mcL (0.6-4.6) L 05/23/16 10:22 PT 16.1 Seconds (9.4-12.1) H 05/23/16 10:22 APTT 38.2 Seconds (26.0-36.0) H 05/21/16 05:41 Potassium 2.9 mEq/L (3.5-4.5) L 05/23/16 10:22 Chloride 113 mEq/L (98-109) H 05/23/16 10:22 Iron 32 mcg/dL (65-175) L 05/21/16 05:41 % Saturation 19 % (20-55) L 05/21/16 05:41 Transferrin 123 mg/dL (174-364) L 05/21/16 05:41 Total Bilirubin 20.4 mg/dL (0.2-1.2) H 05/23/16 10:22 Direct Bilirubin 16.1 mg/dL (0.0-0.5) H D 05/21/16 05:41 Indirect Bilirubin 6.2 mg/dL (0.0-1.2) H 05/21/16 05:41 AST 161 Units/L (5-34) H 05/23/16 10:22 ALT 100 Units/L (0-55) H 05/23/16 10:22 Alkaline Phosphatase 755 Units/L (38-126) H 05/23/16 10:22 Serum Total Protein 5.2 g/dL (6.0-8.3) L 05/23/16 10:22 Albumin 1.7 g/dL (3.5-5.0) L 05/23/16 10:22 Albumin/Globulin Ratio 0.5 (1.1-2.2) L 05/23/16 10:22 Vitamin B12 > 2000 pg/mL (213-816) H 05/21/16 05:41 Nasal Screen MRSA (PCR) Positive (Negative) A 05/21/16 11:48 - Attending Attestation I examined this patient and my medical decision-making was reviewed with the DATA INTEGRATION ARCHITECT/PA/Advanced Practice Nurse/Resident Physician. I agree with the documented findings, disposition and treatment plan as described except to the extent set forth below. - Labs CBC & Chem 7: 05/23/16 10:22 05/23/16 10:22 Labs: Laboratory Results - last 24 hr 05/21/16 05/23/16 05/23/16 05:41 10:22 10:22 WBC 11.7 H RBC 2.62 L Hgb 8.6 L D Hct 26.3 L MCV 100.4 H MCH 32.8 MCHC 32.7 RDW 17.1 H Plt Count 160 MPV 10.6 Immature Gran % 1.0 Seg Neutrophils % 87.4 Lymphocytes % 3.2 Monocytes % 7.5 Eosinophils % 0.7 Basophils % 0.2 Neutrophils # 10.3 H Lymphocytes # 0.4 L Monocytes # 0.9 Eosinophils # 0.1 Basophils # 0.0 Immature Plt Fraction 3.4 PT 16.1 H INR 1.5 Sodium Potassium Chloride Carbon Dioxide BUN Creatinine Est GFR ( Amer) Est GFR (Non-Af Amer) BUN/Creatinine Ratio Glucose Calculated Osmolality Calcium Total Bilirubin AST ALT Alkaline Phosphatase Serum Total Protein Albumin Globulin Albumin/Globulin Ratio Blood Type A POSITIVE Antibody Screen NEGATIVE 05/23/16 10:22 WBC RBC Hgb Hct MCV MCH MCHC RDW Plt Count MPV Immature Gran % Seg Neutrophils % Lymphocytes % Monocytes % Eosinophils % Basophils % Neutrophils # Lymphocytes # Monocytes # Eosinophils # Basophils # Immature Plt Fraction PT INR Sodium 144 Potassium 2.9 L Chloride 113 H Carbon Dioxide 23 BUN 19 Creatinine 0.89 Est GFR ( Amer) > 60 Est GFR (Non-Af Amer) > 60 BUN/Creatinine Ratio 21 Glucose 85 Calculated Osmolality 300 Calcium 8.6 Total Bilirubin 20.4 H AST 161 H ALT 100 H Alkaline Phosphatase 755 H Serum Total Protein 5.2 L Albumin 1.7 L Globulin 3.5 Albumin/Globulin Ratio 0.5 L Blood Type Antibody Screen - ABG Interpretation ABG results: PT/INR, D-dimer PT 16.1 Seconds (9.4-12.1) H 05/23/16 10:22
[2016-05-23] MEDS ORDERED: Metoprolol XL (24 HR) Succ 25 MG TAB.ER.24H PO ONE (12:05)
--- NOTE | 2016-05-23 14:11 | Cardiology Progress Note ---
Date of Encounter: 05/23/16 Time of Encounter: 12:30 Assessment and Plan (1) Atrial flutter with rapid ventricular response Current Visit: Yes Status: Acute Atrial flutter. Avg HR 99 bpm over last 12 hours. Recurrent atrial flutter with RVR seen. Now rate controlled with HR in the 70's. Initially rate controlled on cardizem gtt. Oral cardizem ordered but did not appear to be given. May have been secondary to hypotension. Loaded with IV digoxin 05/22/16. Now on oral toprol xl. Agree with titrating as tolerated. Not on anticoagulation d/t h/o GI bleed on coumadin. Out pt f/u with Dr. Roberts 1-2 weeks after discharge will be scheduled. Discussion w patient/family: The assessment and plan as outlined above was discussed with the patient and/or family members who expressed understanding and agreement. All questions were answered. Thank you for involving us in the care of your patient. Please call with any questions. Subjective Principal diagnosis: atrial flutter wih RVR Interval history: Mr. Correa had recurrent atrial flutter with RVR overnight. Cardiology re- consulted for recommendations. He initially presented to [facility] for MRCP with stent. He has a history of colon cancer with mets to the liver. He was found to be in atrial flutter with RVR and sent to the ER. He is planning to have the procedure possibly tomorrow. Objective Vital Signs, Last 4 Hours Temp Pulse Resp BP Pulse Ox 05/23/16 11:29 97.7 F 100 16 101/56 99 General: Conversant, No Apparent Distress HEENT: Atraumatic, Normocephaly, Mucus Membranes Moist Neck: No JVD, Normal carotid pulses Cardiac: Other (irregularly irregular) Lungs: Normal Breath Sounds, No Wheeze, Rales, Rhonchi Neuro: Alert and responsive, No focal deficits noted Abdomen: Soft, Non-Tender Skin: Other (Jaundice) Musculoskeletal: No Chest Wall Tenderness Extremities: No Clubbing, No Cyanosis, No Edema, Normal Pulses Results 05/23/16 10:22 05/23/16 10:22 Lab Results 05/23/16 05/23/16 05/23/16 10:22 10:22 10:22 WBC 11.7 H Hgb 8.6 L D Hct 26.3 L Plt Count 160 INR 1.5 Sodium 144 Potassium 2.9 L Chloride 113 H Carbon Dioxide 23 BUN 19 Creatinine 0.89 Glucose 85 Calcium 8.6 Total Bilirubin 20.4 H AST 161 H ALT 100 H Alkaline Phosphatase 755 H Chest X-Ray 05/20/16 13:09 IMPRESSION: No acute cardiac or pulmonary disease. D/ / Js Cheney MD / Js Cheney MD Interpreting Provider: Js Cheney MD - EKG Interpretation EKG results cardiology: other - VTE Documentation of Mechanical Device: Graduated compression elastic hosiery Consult Discharge Plan - Plan Referrals: Derik Alvarenga Jr, MD [Primary Care Provider] - (Not sure at this time of patients dicharge plans. Home vs ECF)
[2016-05-24] MEDS ORDERED: *HR* Metoprolol 5 MG/5 ML VIAL IVP ONE ×2 (04:41→10:53)
[2016-05-24] MEDS: Metoprolol XL (24 HR) Succ 50 MG TAB.ER.24H PO SCH (06:24)
[2016-05-24] MEDS: Lactobacillus 1 EACH CAP.SPRINK PO SCH (06:27)
[2016-05-24] MEDS ORDERED: Indomethacin 50 MG SUPP.RECT RC ONE (07:08)
--- NOTE | 2016-05-24 07:27 | Anesthesia Evaluation PreOp ---
Date of Encounter: 05/24/16 Time of Encounter: 07:21 - Past History Planned Operation: ERCP Cardiac History: Arrhythmia (AFib w/RVR this admission responsive to tx w/ Cardizem, Toprol XL, Digoxin. 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 Fine tremor at baseline) Other Medical History: Thyroid (maintained on Synthroid), Other (Pancreatic Ca w / Liver Mets) Anesthesia History: No Prior Anesthetic Complications, Past Anesthesia (Colon resection, Appy) Alcohol Use: none Drug use: none Medications and Allergies Levothyroxine [Synthroid] 50 mcg PO DAILY 10/06/14 [History] Fludrocortisone Acetate [Florinef] 0.1 mg PO DAILY #30 tablet 12/07/15 [Rx] Lactobacillus Acidophilus [Acidophilus Lactobacillus] 1 each PO DAILY #30 capsule 03/24/16 [Rx] Prochlorperazine Maleate [Compazine] 10 mg PO Q6HR PRN 04/02/16 [History] Aspirin 81 mg PO DAILY 04/10/16 [History] DiphenhydraMINE [Benadryl] 25 mg PO Q6HR PRN 04/10/16 [History] Guaifenesin [Mucinex] 600 mg PO BID PRN 04/10/16 [History] Oxycodone HCl/Acetaminophen [Percocet 5-325 mg Tablet] 1 tab PO Q6H PRN [History] HYDROcodone/Acet 10/325 mg [[place] 10-325 mg] 1 tab PO Q6HR PRN 04/28/16 [History ] Lactose-Reduced Food [Boost] 237 ml PO QID 04/28/16 [History] Trifluridine/Tipiracil HCl [[place]f 15 mg-6.14 mg Tablet] 3 each PO BID #60 tablet 05/01/16 [Rx] Trifluridine/Tipiracil HCl [Lonsurf 20 mg-8.19 mg Tablet] 3 tab PO BID #60 tablet 05/01/16 [Rx] GuaiFENesin/Codeine [Robitussin w/Codeine] 10 ml PO Q6HR PRN #300 liquid [Rx] Metoprolol XL (24 HR) Succ [Toprol XL] 25 mg PO DAILY 05/16/16 [History] Sertraline [Zoloft] 100 mg PO HS #90 tablet 05/19/16 [Rx] Nitroglycerin [Nitrostat] 0.4 mg SL Q5M PRN 05/20/16 [History] Allergies Penicillins [PCN] Allergy (Intermediate, Verified 05/20/16 11:04) Rash Sulfa (Sulfonamide Antibiotics) Allergy (Mild, Verified 05/20/16 11:04) Rash - Meds/Allergy Pre-op Review Medications Reviewed: Yes Allergies Reviewed: Yes Beta Blockers on Current Med List: Yes (Metoprolol XL) If Beta Blockers taken, Date/Time (Last Dose taken): 05/24/16 @ 0633 Anesthesia Results - Labs 05/23/16 10:22 05/23/16 10:22 Laboratory Results WBC 11.7 K/mcL (4.3-11.1) H 05/23/16 10:22 RBC 2.62 M/mcL (4.19-5.50) L 05/23/16 10:22 Hgb 8.6 g/dL (12.9-16.9) L D 05/23/16 10:22 Hct 26.3 % (37.5-50.1) L 05/23/16 10:22 MCV 100.4 fL (83.0-100.0) H 05/23/16 10:22 MCH 32.8 pg (28.0-33.3) 05/23/16 10:22 MCHC 32.7 g/dL (31.6-35.5) 05/23/16 10:22 RDW 17.1 % (11.5-14.5) H 05/23/16 10:22 Plt Count 160 K/mcL (140-400) 05/23/16 10:22 MPV 10.6 fL (9.4-12.4) 05/23/16 10:22 Immature Gran % 1.0 % (0-4) 05/23/16 10:22 Seg Neutrophils % 87.4 % 05/23/16 10:22 Lymphocytes % 3.2 % 05/23/16 10:22 Monocytes % 7.5 % 05/23/16 10:22 Eosinophils % 0.7 % 05/23/16 10:22 Basophils % 0.2 % 05/23/16 10:22 Neutrophils # 10.3 K/mcL (1.6-8.9) H 05/23/16 10:22 Lymphocytes # 0.4 K/mcL (0.6-4.6) L 05/23/16 10:22 Monocytes # 0.9 K/mcL (0.0-1.3) 05/23/16 10:22 Eosinophils # 0.1 K/mcL (0.0-0.6) 05/23/16 10:22 Basophils # 0.0 K/mcL (0.0-0.2) 05/23/16 10:22 Immature Plt Fraction 3.4 % (1.1-6.1) 05/23/16 10:22 PT 16.1 Seconds (9.4-12.1) H 05/23/16 10:22 INR 1.5 05/23/16 10:22 APTT 38.2 Seconds (26.0-36.0) H 05/21/16 05:41 Sodium 144 mEq/L (136-145) 05/23/16 10:22 Potassium 2.9 mEq/L (3.5-4.5) L 05/23/16 10:22 Chloride 113 mEq/L (98-109) H 05/23/16 10:22 Carbon Dioxide 23 mEq/L (19-29) 05/23/16 10:22 BUN 19 mg/dL (8-26) 05/23/16 10:22 Creatinine 0.89 mg/dL (0.72-1.25) 05/23/16 10:22 Est GFR ( Amer) > 60 (> 60) 05/23/16 10:22 Est GFR (Non-Af Amer) > 60 (> 60) 05/23/16 10:22 BUN/Creatinine Ratio 21 (6-26) 05/23/16 10:22 Glucose 85 mg/dL (70-99) 05/23/16 10:22 Calculated Osmolality 300 (280-300) 05/23/16 10:22 Calcium 8.6 mg/dL (8.6-10.8) 05/23/16 10:22 Magnesium 1.7 mg/dL (1.6-2.6) 05/21/16 05:41 Iron 32 mcg/dL (65-175) L 05/21/16 05:41 % Saturation 19 % (20-55) L 05/21/16 05:41 Transferrin 123 mg/dL (174-364) L 05/21/16 05:41 Total Bilirubin 20.4 mg/dL (0.2-1.2) H 05/23/16 10:22 Direct Bilirubin 16.1 mg/dL (0.0-0.5) H D 05/21/16 05:41 Indirect Bilirubin 6.2 mg/dL (0.0-1.2) H 05/21/16 05:41 AST 161 Units/L (5-34) H 05/23/16 10:22 ALT 100 Units/L (0-55) H 05/23/16 10:22 Alkaline Phosphatase 755 Units/L (38-126) H 05/23/16 10:22 Troponin I 0.01 ng/mL (0-0.03) 05/20/16 13:38 Serum Total Protein 5.2 g/dL (6.0-8.3) L 05/23/16 10:22 Albumin 1.7 g/dL (3.5-5.0) L 05/23/16 10:22 Globulin 3.5 g/dL (2.4-3.5) 05/23/16 10:22 Albumin/Globulin Ratio 0.5 (1.1-2.2) L 05/23/16 10:22 Vitamin B12 > 2000 pg/mL (213-816) H 05/21/16 05:41 Folate 14.6 ng/mL (7.0-31.4) 05/21/16 05:41 TSH 0.599 mcIU/mL (0.350-4.840) 05/20/16 13:38 Nasal Screen MRSA (PCR) Positive (Negative) A 05/21/16 11:48 Specimen Rejected Miscellaneous 05/22/16 06:51 Blood Type A POSITIVE 05/21/16 05:41 Antibody Screen NEGATIVE 05/21/16 05:41 Impressions Chest X-Ray 05/20/16 13:09 IMPRESSION: No acute cardiac or pulmonary disease. D/ / Js Cheney MD / Js Cheney MD Interpreting Provider: Js Cheney MD - Imaging EKG: image reviewed Anesthesia Exam Vital Signs Temp Pulse Resp BP Pulse Ox 05/24/16 06:29 96 113/64 05/24/16 04:15 98.1 F 130 18 153/82 98 05/23/16 23:14 99.1 F 91 18 132/63 98 05/23/16 19:05 98.2 F 67 19 103/57 98 05/23/16 16:31 98.2 F 74 16 103/66 99 05/23/16 11:29 97.7 F 100 16 101/56 99 05/23/16 08:55 99 05/23/16 08:10 99.1 F 134 16 118/67 96 Intake and Output 05/23/16 05/23/16 05/24/16 15:59 23:59 07:59 Intake Total 277 / 277 710 / 710 0 / 0 Output Total 450 / 450 150 / 150 100 / 100 Balance -173 / -173 560 / 560 -100 / -100 Intake: IV Fluids 107 / 107 300 / 300 Cardizem 125 MG In 7 / 7 Dextrose 5% 100 ML @ 5 MG /HR 5 mls/hr IVC .Q24H [place] Rx#:[id number] Potassium Chloride 10 mEq 100 / 100 300 / 300 /100mL 10 meq In 100 ml @ 100 mls/hr IVPB Q1H [facility] Rx#:[id number] Oral 170 / 170 410 / 410 0 / 0 Output: Urostomy 450 / 450 150 / 150 100 / 100 Other: Meal Lunch Dinner Percent of Meal Consumed 50% 50% # Voids 1 # Bowel Movements 1 Weight 54 kg Patient Weight 05/24/16 23:59 Weight 54 kg Height: 5'6" Weight: 119# BMI = 19 NPO (# of Hours): MNoc - HEENT Pupil (Motor): Pupils equal, EOMI Mallampati: II Teeth: Normal Oral Opening: Greater than 3 - 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 Motor: Normal RUE, Normal LUE, Normal RLE, Normal LLE, Normal Face [employer] O[employer] Sensory: Normal: RUE, LUE, RLE, LLE, Face - Cardiac Rhythm: Regular Murmur: None - Pulmonary Breath Sounds: bilateral Clear Respiratory Effort: Symmetrical Anesthesia Assess/Plan ASA Score: 4 (Pancreatic Ca w/ Liver mets, AFib, Hypothyroidism) Modified Vivian Scale for Level of Consciousness: Cooperative, oriented, and tranquil Anesthetic Plan: General Monitoring Plan: Standard Monitors Recovery Plan: PACU Anes Supervising Prov Stmt: Pt seen/evaluated, R&B discussed, questions answered and consent obtained. Karina Banuelos MD
[2016-05-24] MEDS ORDERED: *HR* Propofol 200 MG/20 ML VIAL IVP ONE (07:36)
[2016-05-24] MEDS ORDERED: Lidocaine -MPF 4% 5 ML AMPUL ONE (07:36)
[2016-05-24] MEDS ORDERED: *HR* Succinylcholine 200 MG/10 ML VIAL IVP ONE (07:36)
[2016-05-24] MEDS ORDERED: *HR* Etomidate 40 MG/20 ML VIAL IVP ONE (07:36)
[2016-05-24] MEDS ORDERED: Lidocaine -MPF 2% 2 ML VIAL ONE ×2 (07:36→07:37)
[2016-05-24] MEDS ORDERED: Lacri-Lube 3.5 GM TUBE ONE (07:37)
[2016-05-24] MEDS ORDERED: *HR* FentaNYL (PF) 100 MCG/2 ML VIAL ONE (07:38)
[2016-05-24] MEDS ORDERED: Ringers Solution, Lactated 1,000 ML IVC SCH (08:00)
[2016-05-24] MEDS ORDERED: *HR* Magnesium Sulfate 1 GM/2 ML VIAL ONE (08:05)
[2016-05-24] MEDS ORDERED: *HR* Phenylephrine 10 MG/ML VIAL ONE (08:38)
[2016-05-24] MEDS ORDERED: Dexamethasone 4 MG/ML VIAL ONE (09:06)
[2016-05-24] MEDS ORDERED: Ondansetron 4 MG/2 ML VIAL ONE (09:06)
--- NOTE | 2016-05-24 10:47 | Anesthesia Evaluation Post Op ---
Date of Encounter: 05/24/16 Time of Encounter: 10:30 - Vital Signs Vital Signs: Vital Signs/O2 Sat/Glucose, Most Current Temp Pulse Resp BP Pulse Ox 05/24/16 10:20 98.6 F 126 18 115/69 97 05/24/16 10:10 127 20 105/65 94 L 05/24/16 10:00 125 20 112/67 96 05/24/16 09:50 98.7 F 124 20 103/52 96 05/24/16 07:49 106 18 114/71 96 05/24/16 07:30 97.8 F 101 18 111/67 96 - Lungs Lungs: Clear Ascult./Percussion - Airway Airway: Non-obstructed - Cardiovascular Irregular Rate, Baseline Rhythm - Mental Status Mental Status: Asleep with brisk response to light stimulation - Pain Pain Scale used: Johnnie (Faces) (1) - Nausea Vomiting Nausea Vomiting: Not Present - Hydration Hydration: NPO, Has not voided - Discharge PostOp Status: Transfer Patient to floor Anes Supervising Prov Stmt: Pt seen/evaluated, VSS and pt has met criteria for discharge to floor. - MD Vin
[2016-05-24] MEDS: Aspirin 81 MG TAB.CHEW PO SCH (11:06)
--- NOTE | 2016-05-24 14:01 | Event Note ---
Date of Encounter: 05/25/15 Time of Encounter: 08:50 - Cardiology Event Note Patient was gone to surgery and not seen. Telemetry review was completed. Average heart rate over the last 12 hours was 76 bpm. There is one episode of atrial fibrillation with RVR heart rate in the 110. Heart rate in the 80s to 90s this morning prior to leaving for a heart. Cardiology will sign off. Continue Toprol XL and increase as needed. Please call with questions.
--- NOTE | 2016-05-24 15:58 | Internal Med Progress Note ---
Date of Encounter: 05/24/16 Time of Encounter: 11:00 - Assessment and plan (1) Afib Current Visit: No Status: Chronic Assessment and plan: Currently tachycardic post procedure. Extra Lopressor given. Will continue to monitor and adjust med as needed. Qualifiers: Atrial fibrillation type: persistent Qualified Code(s): I48.1 - Persistent atrial fibrillation (2) Secondary malignant neoplasm of liver Current Visit: Yes Status: Acute Assessment and plan: Patient has metastatic colon cancer with metastatic disease to the liver. Clinical picture demonstrates a cachectic male that his jaundice and urostomy bag with orange urine. History of metal stents in biliary system. Pt is s/p stent placement today. (3) Supratherapeutic INR Current Visit: Yes Status: Acute Assessment and plan: Monitoring labs. (4) Jaundice Current Visit: No Status: Acute Assessment and plan: He is s/p ERCP and new stent today. (5) Hypokalemia Current Visit: No Status: Acute Assessment and plan: Replace today. (6) Anemia Current Visit: Yes Status: Acute Assessment and plan: Monitoring H/H/ Qualifiers: Anemia type: other cause Other causes of anemia: chronic disease, neoplastic Qualified Code(s): D63.0 - Anemia in neoplastic disease (7) Hypothyroidism Current Visit: No Status: Chronic Assessment and plan: Continue supplement. 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 - Subjective Interval history: Mr. Correa is currently admitted for acute a fib with RVR and obstructive jaundice due to metastatic colon cancer. He is moderate to high risk due to cardiac condition and need for procedure today. Mr. Correa just returned from stent placement. His heartrate is elevated at this time. He is still somnolent from procedure. - Constitutional Vitals: Temp Pulse Resp BP Pulse Ox 97.9 F 89 16 96/57 98 05/24/16 14:30 05/24/16 14:30 05/24/16 14:30 05/24/16 14:30 05/24/16 14:30 General appearance: Present: A&O X 3, pleasant, no acute distress, underweight - Head Head exam: Present: normocephalic - Eye Eye exam: Present: conjuntiva pink - ENT ENT exam: Present: mucous membranes dry - Respiratory Respiratory exam: Present: decreased breath sounds, CTAB - Cardiovascular Cardiovascular exam: Present: distant heart sounds, irregular rhythm, +S4, tachycardia - GI/Abdominal GI/Abdominal exam: Present: soft. Absent: tenderness - Extremities Exam Extremities exam: Present: warm - Neurological Exam Neurological exam: Present: alert, oriented X3 - Skin Additional comments: Jaundice present. Internal Medicine: Result - Labs CBC & Chem 7: 05/23/16 10:22 05/23/16 10:22 - ABG Interpretation ABG results: PT/INR, D-dimer PT 16.1 Seconds (9.4-12.1) H 05/23/16 10:22 - VTE Documentation of Mechanical Device: Graduated compression elastic hosiery Consult Discharge Plan - Plan Referrals: Derik Alvarenga Jr, MD [Primary Care Provider] - (Not sure at this time of patients dicharge plans. Home vs ECF)
[2016-05-25] MEDS: Lactobacillus 1 EACH CAP.SPRINK PO SCH (06:30)
[2016-05-25] MEDS: Metoprolol XL (24 HR) Succ 50 MG TAB.ER.24H PO SCH (06:31)
--- NOTE | 2016-05-25 07:35 | Electrocardiograph Report ---
[place] [id number] Test Date: 2016-05-23 Pat Name: Eugene Correa Department: 112 Room: 2A31 Gender: M Account Support Analyst: [facility] : 1935 Requested By: Teja Samson Order Number: [id number] Reading MD: Jaime Parry MD Measurements Intervals [place] Rate: 135 P: [place]: 0 QRS: 36 QRSD: 83 T: -84 QT: 227 QTc: 306 Interpretive Statements ATRIAL FLUTTER/TACHYCARDIA WITH RAPID VENTRICULAR RESPONSE LOW QRS VOLTAGE IN EXTREMITY LEADS Electronically Signed On 05-25-2016 7:34:34 EDT by Jaime Parry MD
[2016-05-25 07:49] LABS: Hematocrit 34.2 % (37.5-50.1); Mean Corpuscular Hemoglobin 32.8 pg (28.0-33.3); Mean Corpuscular Volume 99.1 fL (83.0-100.0); Mean Platelet Volume 10.9 fL (9.4-12.4); Platelet Count 193 K/mcL (140-400); Red Blood Count 3.45 M/mcL (4.19-5.50); Red Cell Distribution Width 16.9 % (11.5-14.5)
[2016-05-25 07:54] LABS: Hemoglobin 11.3 g/dL (12.9-16.9)
[2016-05-25 08:00] LABS: Albumin/Globulin Ratio 0.4 (1.1-2.2); Calcium 8.8 mg/dL (8.6-10.8); Globulin 4.1 g/dL (2.4-3.5); Magnesium 2.3 mg/dL (1.6-2.6); Potassium 3.7 mEq/L (3.5-4.5); Total Protein 5.8 g/dL (6.0-8.3)
[2016-05-25 08:01] LABS: Albumin 1.7 g/dL (3.5-5.0); Bilirubin,Total 24.3 mg/dL (0.2-1.2)
[2016-05-25 08:03] LABS: INR 1.3; Prothrombin Time 13.8 Seconds (9.4-12.1)
[2016-05-25] MEDS: Aspirin 81 MG TAB.CHEW PO SCH (09:25)
[2016-05-25] MEDS ORDERED: *HR* Metoprolol 5 MG/5 ML VIAL IVP ONE (10:34)
--- NOTE | 2016-05-25 14:46 | Internal Med Progress Note ---
Date of Encounter: 05/25/16 Time of Encounter: 08:00 - Assessment and plan (1) Afib Current Visit: No Status: Chronic Assessment and plan: Remains tachycardic today. Will increase Metoprolol and give additional dose now. May need to add Cardizem back to regimen if persists. His creatinine is elevated as well so will give additional IV fluids today. Qualifiers: Atrial fibrillation type: persistent Qualified Code(s): I48.1 - Persistent atrial fibrillation (2) Secondary malignant neoplasm of liver Current Visit: Yes Status: Acute Assessment and plan: Patient has metastatic colon cancer with metastatic disease to the liver. Clinical picture demonstrates a cachectic male that his jaundice and urostomy bag with orange urine. History of metal stents in biliary system. Pt appears to be doing better with placement of plastic stent into the metal stent. (3) Supratherapeutic INR Current Visit: Yes Status: Acute Assessment and plan: Monitoring labs. (4) Jaundice Current Visit: No Status: Acute Assessment and plan: He is s/p ERCP and new stent. Clinically appears to be improving though numbers still high. (5) Hypokalemia Current Visit: No Status: Acute Assessment and plan: Improved today. Recheck tomorrow. (6) Anemia Current Visit: Yes Status: Acute Assessment and plan: Monitoring H/H/ Qualifiers: Anemia type: other cause Other causes of anemia: chronic disease, neoplastic Qualified Code(s): D63.0 - Anemia in neoplastic disease (7) Hypothyroidism Current Visit: No Status: Chronic Assessment and plan: Continue supplement. 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 (9) Acute kidney injury Current Visit: Yes Status: Acute - Subjective Interval history: Mr. Correa is currently admitted for acute a fib with RVR and obstructive jaundice due to metastatic colon cancer. He is moderate to high risk due to cardiac condition and need for procedure today. Mr. Correa is less nauseated and ill feeling. He appears less jaundiced though his numbers are still high. Heart rate still elevated. No CP or SOB. No new GI symptoms. - Constitutional Vitals: Temp Pulse Resp BP Pulse Ox 98.1 F 128 18 88/53 98 05/25/16 12:21 05/25/16 12:21 05/25/16 12:21 05/25/16 12:21 05/25/16 12:21 General appearance: Present: A&O X 3, pleasant, no acute distress, underweight - Head Head exam: Present: normocephalic - Eye Eye exam: Present: EOMI, conjuntiva pink - ENT ENT exam: Present: mucous membranes dry - Respiratory Respiratory exam: Present: decreased breath sounds, CTAB - Cardiovascular Cardiovascular exam: Present: irregular rhythm, tachycardia - GI/Abdominal GI/Abdominal exam: Present: soft. Absent: tenderness - Extremities Exam Extremities exam: Present: warm. Absent: joint swelling - Neurological Exam Neurological exam: Present: alert, oriented X3 - Skin Skin exam: Present: warm (Jaundice persists.). Absent: rash Internal Medicine: Result - Labs CBC & Chem 7: 05/25/16 07:17 05/25/16 07:17 Labs: Short CBC 05/25/16 Range/Units 07:17 WBC 18.2 H D (4.3-11.1) K/mcL Hgb 11.3 L D (12.9-16.9) g/dL Hct 34.2 L (37.5-50.1) % Plt Count 193 (140-400) K/mcL BMP 05/25/16 07:17 Sodium 140 Potassium 3.7 Chloride 110 H Carbon Dioxide 19 BUN 41 H D Creatinine 1.39 H D Glucose 146 H Calcium 8.8 Liver Function 05/25/16 Range/Units 07:17 Total Bilirubin 24.3 H (0.2-1.2) mg/dL AST 185 H (5-34) Units/L ALT 122 H (0-55) Units/L Alkaline Phosphatase 902 H (38-126) Units/L Albumin 1.7 L (3.5-5.0) g/dL - ABG Interpretation ABG results: PT/INR, D-dimer PT 13.8 Seconds (9.4-12.1) H 05/25/16 07:17 - Impressions Impressions Cath/Invasive Procedure 05/24/16 08:30 IMPRESSION: Fluoroscopy provided for ERCP procedure. Please see the intraoperative note for complete details. D/ / 05/24/2016 16:59:30 Giovany Nugent MD / lino Interpreting Provider: Giovany Nugent MD - VTE Documentation of Mechanical Device: Graduated compression elastic hosiery Consult Discharge Plan - Plan Referrals: Derik Alvarenga Jr, MD [Primary Care Provider] - (Not sure at this time of patients dicharge plans. Home vs ECF)
[2016-05-25] MEDS ORDERED: Metoprolol XL (24 HR) Succ 50 MG TAB.ER.24H PO ONE (15:02)
[2016-05-25] MEDS: 0.9 % Sodium Chloride 1,000 ML IVC SCH (16:21)
[2016-05-26] MEDS: 0.9 % Sodium Chloride 1,000 ML IVC SCH (04:44)
[2016-05-26] MEDS: Lactobacillus 1 EACH CAP.SPRINK PO SCH (05:43)
[2016-05-26] MEDS ORDERED: Metoprolol XL (24 HR) Succ 50 MG TAB.ER.24H PO SCH (06:00)
[2016-05-26] MEDS: Aspirin 81 MG TAB.CHEW PO SCH (08:02)
[2016-05-26] MEDS ORDERED: 0.9 % Sodium Chloride 1,000 ML IVC ONE (09:01)
[2016-05-26] MEDS ORDERED: 0.9 % Sodium Chloride 1,000 ML ONE (09:06)
[2016-05-26] MEDS ORDERED: Vancomycin 1,000 MG in D5% in Water 250 ML IVPB SCH ×2 (10:00→11:00)
[2016-05-26] MEDS ORDERED: Aztreonam 1,000 MG in D5% in Water (Mini-Bag+) 100 ML IVPB SCH (10:00)
[2016-05-26 10:05] VITALS: BP 79/47
--- NOTE | 2016-05-26 11:06 | Discharge Summary ---
<Андрей Haley - Last Filed: 05/26/16 14:46> Date of Encounter: 05/26/16 Time of Encounter: 11:05 - Discharge Diagnosis (1) Secondary malignant neoplasm of liver Priority: Primary Status: Acute (2) Jaundice Priority: Primary Status: Acute (3) Atrial flutter with rapid ventricular response Priority: Primary Status: Acute (4) Hypokalemia Priority: Primary Status: Acute (5) Supratherapeutic INR Priority: Primary Status: Acute - Discharge Medications Prescriptions: LORazepam Oral Conc [Ativan Oral Conc] 1 mg PO Q6HR #30 mls Morphine Oral CONC [Roxanol] 5 mg PO Q2H PRN #30 ml PRN Reason: pain or sob OxyCODONE Immed Rel [Roxicodone 5 MG] 5 - 10 mg PO Q2H PRN #100 tab PRN Reason: Pain Sennosides/Docusate Sodium [Senna Plus] 2 each PO BID #30 tablet Home Medications: Levothyroxine [Synthroid] 50 mcg PO DAILY 10/06/14 [History] Fludrocortisone Acetate [Florinef] 0.1 mg PO DAILY #30 tablet 12/07/15 [Rx] Lactobacillus Acidophilus [Acidophilus Lactobacillus] 1 each PO DAILY #30 capsule 03/24/16 [Rx] Prochlorperazine Maleate [Compazine] 10 mg PO Q6HR PRN 04/02/16 [History] Aspirin 81 mg PO DAILY 04/10/16 [History] DiphenhydraMINE [Benadryl] 25 mg PO Q6HR PRN 04/10/16 [History] Guaifenesin [Mucinex] 600 mg PO BID PRN 04/10/16 [History] Oxycodone HCl/Acetaminophen [Percocet 5-325 mg Tablet] 1 tab PO Q6H PRN [History] HYDROcodone/Acet 10/325 mg [[place] 10-325 mg] 1 tab PO Q6HR PRN 04/28/16 [History ] Lactose-Reduced Food [Boost] 237 ml PO QID 04/28/16 [History] Trifluridine/Tipiracil HCl [[place] 15 mg-6.14 mg Tablet] 3 each PO BID #60 tablet 05/01/16 [Rx] Trifluridine/Tipiracil HCl [Lonsurf 20 mg-8.19 mg Tablet] 3 tab PO BID #60 tablet 05/01/16 [Rx] GuaiFENesin/Codeine [ROBITUSSIN w/CODEINE] 10 ml PO Q6HR PRN #300 liquid [Rx] Metoprolol XL (24 HR) Succ [Toprol Xl] 25 mg PO DAILY 05/16/16 [History] Sertraline [Zoloft] 100 mg PO HS #90 tablet 05/19/16 [Rx] Nitroglycerin [Nitrostat] 0.4 mg SL Q5M PRN 05/20/16 [History] LORazepam Oral Conc [Ativan Oral Conc] 1 mg PO Q6HR #30 mls 05/26/16 [Rx] Morphine Oral CONC [Roxanol] 5 mg PO Q2H PRN #30 ml 05/26/16 [Rx] OxyCODONE Immed Rel [Roxicodone 5 MG] 5 - 10 mg PO Q2H PRN #100 tab 05/26/16 [Rx ] Sennosides/Docusate Sodium [Senna Plus] 2 each PO BID #30 tablet 05/26/16 [Rx] Allergies/Adverse Reactions: Allergies Penicillins [PCN] Allergy (Intermediate, Verified 05/20/16 11:04) Rash Sulfa (Sulfonamide Antibiotics) Allergy (Mild, Verified 05/20/16 11:04) Rash Date of admission: 05/20/16 17:55 Primary care physician: Derik Alvarenga Jr, MD Consults: 05/20/16 18:43 Consult to Gastroenterology [CONS] Routine Consulting Provider: [facility] Reason for Consult: Patient in need of ERCP for jaundice, but was halted due to Aflutter with RVR. Once HR under control would like to proceed. Call Completed: Yes 05/20/16 18:44 Consult to Palliative Care [CONS] Routine Comment: Consulting Provider: [facility] Discharging clinician: Андрей Haley Anticipated date of discharge: 05/26/16 - Patient Status Disposition: Hospice - Home Condition: Fair Overall status at discharge: other (Patient is ill with hypotension and wishes to not treat and be discharged home on hospice.) - Discharge Instructions Instructions: Lorazepam (By mouth), Laxative, Stimulant (By mouth), Oxycodone, Rapid Release (By mouth), Atrial Flutter (DC), Anemia (GEN) Follow Up With: Derik Alvarenga Jr, MD [Primary Care Provider] - 05/30/16 1:25 pm (Please follow up as schedule with the nurse practitioner Snehal Peguero) - Diet and Activity Activity: resume usual activities as tolerated Diet: advance to your usual diet Interval History: Mr. Correa is a 80 year old male with atrial fibrillation, acid reflux, history of bladder cancer status post cystectomy and urostomy, metastatic colon cancer with liver and lung metastasis, was seen in the emergency department after he was found to have atrial fibrillation with rapid ventricular rate when undergoing preparation for his ERCP. EKG performed in the emergency department demonstrated atrial flutter with a heart rate 134. He was admitted to the general medical floor and started on a Cardizem drip and placed on continuous cardiac monitoring. Cardiology was consult. Gastroenterology was consulted given the patient is jaundiced with bilirubin of 23 and history of metal stent placement. He was supposed to undergo stenting of his biliary ducts as a palliative measure. Cardiology evaluated the patient recommended switching to by mouth Cardizem. The patient was unable to tolerate by mouth Cardizem and subsequent nights following he had recurrence of rapid ventricular rates with require being placed back on the Cardizem drip and occasionally improvement with IV Lopressor. He was then transitioned to Toprol-XL they are requiring adjusting his dose to control his heart rate. His initial ERCP procedure date was canceled as his INR was 2.2 and there is difficulty controlling his rapid ventricular rate. During this admission palliative care was consult did an first evaluated on 05/21/2016 with counseling of goals of care. On 05/24/2016 Mr. Correa underwent stenting of his biliary duct successful placement. He continued to have difficulty with rapid ventricular rates despite adjustments to his rate control. On 05/26/2016 Mr. Correa was seen and evaluated at patient bedside. He had been demonstrating difficulty with blood pressure control since last evening, rapid ventricular rate and had an elevated WBC count. I discussed further treatment for possible actual infection and Mr. Cox declined any further antibiotic treatments or any other further intervention. Risks and benefits were discussed with both Mr. Cox and his . He was seen and evaluated by the palliative care team and his CODE STATUS adjusted DNR CC and he was discharged with home hospice care. Hospital course: Mr. Correa is a 80 year old male - Time Spent with Patient Total time spent providing and/or coordinating discharge services: - Constitutional Vitals: Temp Pulse Resp BP Pulse Ox 97.7 F 130 18 79/47 97 05/26/16 10:04 05/26/16 10:04 05/26/16 10:04 05/26/16 10:04 05/26/16 10:04 General appearance: Present: cachectic, pleasant, no acute distress, underweight - Head Head exam: Present: atraumatic, normocephalic - Eye Eye exam: Present: PERRL, scleral icterus, conjuntiva pink Pupils: Present: PERRL - ENT ENT exam: Present: mucous membranes moist - Neck Neck exam general surgery: Present: supple, trachea midline. Absent: lymphadenopathy - Respiratory Respiratory exam: Present: CTAB. Absent: accessory muscle use, rales, rhonchi, wheezes - Cardiovascular Cardiovascular exam: Present: irregular rhythm. Absent: diastolic murmur, gallop, rubs, systolic murmur - GI/Abdominal GI/Abdominal exam: Present: normal bowel sounds, soft, no peritoneal signs. Absent: distended, tenderness Additional comments: Urostomy with orange urine. - Extremities Exam Extremities exam: Present: warm, radial pulses palpable and symetrical. Absent : calf tenderness, cyanotic, pedal edema - Neurological Exam Neurological exam: Present: alert, no focal deficits. Absent: pronater drift, facial droop, speech deficit - Psychiatric Psychiatric exam: Present: flat affect, normal mood - Skin Skin exam: Present: intact Additional comments: Skin Jaundice - VTE Documentation of Mechanical Device: Graduated compression elastic hosiery <Teja Samson - Last Filed: 05/26/16 17:03> - Discharge Diagnosis (1) Afib Status: Chronic Qualifiers: Atrial fibrillation type: persistent Qualified Code(s): I48.1 - Persistent atrial fibrillation (2) Secondary malignant neoplasm of liver Status: Acute (3) Supratherapeutic INR Status: Acute (4) Jaundice Status: Acute (5) Hypokalemia Priority: Secondary Status: Acute (6) Anemia Priority: Secondary Status: Acute Qualifiers: Anemia type: other cause Other causes of anemia: chronic disease, neoplastic Qualified Code(s): D63.0 - Anemia in neoplastic disease (7) Hypothyroidism Priority: Secondary Status: Chronic Qualifiers: Hypothyroidism type: acquired Qualified Code(s): E03.9 - Hypothyroidism, unspecified (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 Once HR under control would like to proceed. Call Completed: Yes 05/20/16 18:44 Consult to Palliative Care [CONS] Routine Comment: Consulting Provider: [facility] Hospital course: Mr. Correa is a 80 year old male - Time Spent with Patient Total time spent providing and/or coordinating discharge services: - Constitutional Vitals: Temp Pulse Resp BP Pulse Ox 97.7 F 130 18 79/47 97 05/26/16 10:04 05/26/16 10:04 05/26/16 10:04 05/26/16 10:04 05/26/16 10:04 - Attending Attestation I examined this patient and my medical decision-making was reviewed with the Resident Physician on 05/26/16. I agree with the documented findings, disposition and treatment plan as described except to the extent set forth below. Mr. Correa has decided to go home with hospice today. His BP is low. Arrangements being made by palliative care. Exam Alert. Comfortable Heart irreg and tachy Plan D/C home with Hospice.
--- NOTE | 2016-05-26 11:51 | Event Note ---
Date of Encounter: 05/26/16 Time of Encounter: 11:49 Hospice medical dosimetrist certification of terminal illness: Hospice benefit. Start: 05/26/2016 Hospice benefit. In: +90 days Palliative performance scale: 30% History: Patient with a history of metastatic cancer status post ostomy, widely metastatic with repeated stents placed and liver for liver obstruction with possible sepsis and atrial fibrillation with rapid ventricular response. Family does not wish to have any further aggressive therapy and wished to go with hospice care. There is nothing left to offer this gentleman with regard to his cancer therapy and the fact that he now has possible sepsis as well as fibrillation which is been very hard to control added to that he does not wish to have any aggressive care I find that These findings support a life expectancy of 6 months or less. I attest that I have compose the above narrative based on my review of the patient's medical records, and or on my examination of the patient. Seth Barrera M.D. Associate special forces medical sergeant. [facility]
--- NOTE | 2016-05-26 12:50 | Palliative Progress Note ---
<Nolan Barbosa - Last Filed: 05/26/16 12:47> Date of Encounter: 05/26/16 Time of Encounter: 12:48 - Assessment and plan (1) Goals of care, counseling/discussion Current Visit: No Status: Acute Assessment and plan: Followed up with goals of care discussion on Thursday. Family's expressed desire to proceed with discharging home with [facility]. We discussed the services hospice can provide and the process for setting up services at home. Patient will be discharged today and the hospice referral will be made. Plan is to transition to [facility] hosp[facility] today. Patient will be transitioned to DNR CC. (2) Atrial flutter with rapid ventricular response Current Visit: Yes Status: Acute Assessment and plan: Rate is elevated at this time. Given the patient's goals of care we will no longer treat this aggressively. Plan as above. (3) Hyperbilirubinemia Current Visit: No Status: Acute Assessment and plan: Remain significantly elevated with significant jaundice. Patient had an plastic biliary stent placed this weekend without significant response. Plan as above. (4) Metastatic colon cancer to liver Current Visit: Yes Status: Acute Assessment and plan: Family is wishing to back off from aggressive treatment at this time. Transition to a [place] [facility] hospice. - Time Spent With Patient Total time spent is greater than 50% in coordination of care (as documented) at patient's floor/unit and/or counseling patient: - Subjective Interval history: Patient seen and examined at bedside. Patient has no complaints at this time. Patient was sleeping for most my visit today. He denies any pain, shortness of breath, anxiety, nausea, vomiting. He tolerated breakfast well. - Constitutional Vitals: Abnormal lab results WBC 18.2 K/mcL (4.3-11.1) H D 05/25/16 07:17 RBC 3.45 M/mcL (4.19-5.50) L 05/25/16 07:17 Hgb 11.3 g/dL (12.9-16.9) L D 05/25/16 07:17 Hct 34.2 % (37.5-50.1) L 05/25/16 07:17 RDW 16.9 % (11.5-14.5) H 05/25/16 07:17 Neutrophils # 10.3 K/mcL (1.6-8.9) H 05/23/16 10:22 Lymphocytes # 0.4 K/mcL (0.6-4.6) L 05/23/16 10:22 PT 13.8 Seconds (9.4-12.1) H 05/25/16 07:17 APTT 38.2 Seconds (26.0-36.0) H 05/21/16 05:41 Chloride 110 mEq/L (98-109) H 05/25/16 07:17 BUN 41 mg/dL (8-26) H D 05/25/16 07:17 Creatinine 1.39 mg/dL (0.72-1.25) H D 05/25/16 07:17 Est GFR (Non-Af Amer) 49 (> 60) L 05/25/16 07:17 BUN/Creatinine Ratio 29 (6-26) H 05/25/16 07:17 Glucose 146 mg/dL (70-99) H 05/25/16 07:17 Calculated Osmolality 303 (280-300) H 05/25/16 07:17 Iron 32 mcg/dL (65-175) L 05/21/16 05:41 % Saturation 19 % (20-55) L 05/21/16 05:41 Transferrin 123 mg/dL (174-364) L 05/21/16 05:41 Total Bilirubin 24.3 mg/dL (0.2-1.2) H 05/25/16 07:17 Direct Bilirubin 16.1 mg/dL (0.0-0.5) H D 05/21/16 05:41 Indirect Bilirubin 6.2 mg/dL (0.0-1.2) H 05/21/16 05:41 AST 185 Units/L (5-34) H 05/25/16 07:17 ALT 122 Units/L (0-55) H 05/25/16 07:17 Alkaline Phosphatase 902 Units/L (38-126) H 05/25/16 07:17 Serum Total Protein 5.8 g/dL (6.0-8.3) L 05/25/16 07:17 Albumin 1.7 g/dL (3.5-5.0) L 05/25/16 07:17 Globulin 4.1 g/dL (2.4-3.5) H 05/25/16 07:17 Albumin/Globulin Ratio 0.4 (1.1-2.2) L 05/25/16 07:17 Vitamin B12 > 2000 pg/mL (213-816) H 05/21/16 05:41 Nasal Screen MRSA (PCR) Positive (Negative) A 05/21/16 11:48 - Eye Eye exam: Present: scleral icterus - ENT ENT exam: Present: mucous membranes moist - Respiratory Respiratory exam: Present: CTAB. Absent: rales, rhonchi, wheezes - Cardiovascular Cardiovascular exam: Present: irregular rhythm, tachycardia. Absent: gallop, rubs, systolic murmur - GI/Abdominal GI/Abdominal exam: Present: diminished bowel sounds, soft. Absent: distended, tenderness - Extremities Exam Extremities exam: Absent: pedal edema - Neurological Exam Neurological exam: Present: alert, oriented X3, no focal deficits - Skin Additional comments: Diffuse significant jaundice. Palliative Quality Palliative Quality: Screen for Code Status: Yes, Screen for Goals of Care: Yes, Screen for Pain: Yes, If Pain Regimen Started, Initiate Bowel Regimen: NA, Screen for Nausea/Vomitting: Yes - Labs CBC & Chem 7: 05/25/16 07:17 05/25/16 07:17 - ABG Interpretation ABG results: PT/INR, D-dimer PT 13.8 Seconds (9.4-12.1) H 05/25/16 07:17 Consult Discharge Plan - Plan Instructions: Lorazepam (By mouth), Laxative, Stimulant (By mouth), Oxycodone, Rapid Release (By mouth), Atrial Flutter (DC), Anemia (GEN) Referrals: Derik Alvarenga Jr, MD [Primary Care Provider] - 05/30/16 1:25 pm (Please follow up as schedule with the nurse practitioner Snehal Peguero) Prescriptions: LORazepam Oral Conc [Ativan Oral Conc] 1 mg PO Q6HR #30 mls Morphine Oral CONC [Roxanol] 5 mg PO Q2H PRN #30 ml PRN Reason: pain or sob OxyCODONE Immed Rel [Roxicodone 5 MG] 5 - 10 mg PO Q2H PRN #100 tab PRN Reason: Pain Sennosides/Docusate Sodium [Senna Plus] 2 each PO BID #30 tablet <Seth Barrera L - Last Filed: 05/26/16 13:12> - Time Spent With Patient Total time spent is greater than 50% in coordination of care (as documented) at patient's floor/unit and/or counseling patient: - Constitutional Vitals: Abnormal lab results WBC 18.2 K/mcL (4.3-11.1) H D 05/25/16 07:17 RBC 3.45 M/mcL (4.19-5.50) L 05/25/16 07:17 Hgb 11.3 g/dL (12.9-16.9) L D 05/25/16 07:17 Hct 34.2 % (37.5-50.1) L 05/25/16 07:17 RDW 16.9 % (11.5-14.5) H 05/25/16 07:17 Neutrophils # 10.3 K/mcL (1.6-8.9) H 05/23/16 10:22 Lymphocytes # 0.4 K/mcL (0.6-4.6) L 05/23/16 10:22 PT 13.8 Seconds (9.4-12.1) H 05/25/16 07:17 APTT 38.2 Seconds (26.0-36.0) H 05/21/16 05:41 Chloride 110 mEq/L (98-109) H 05/25/16 07:17 BUN 41 mg/dL (8-26) H D 05/25/16 07:17 Creatinine 1.39 mg/dL (0.72-1.25) H D 05/25/16 07:17 Est GFR (Non-Af Amer) 49 (> 60) L 05/25/16 07:17 BUN/Creatinine Ratio 29 (6-26) H 05/25/16 07:17 Glucose 146 mg/dL (70-99) H 05/25/16 07:17 Calculated Osmolality 303 (280-300) H 05/25/16 07:17 Iron 32 mcg/dL (65-175) L 05/21/16 05:41 % Saturation 19 % (20-55) L 05/21/16 05:41 Transferrin 123 mg/dL (174-364) L 05/21/16 05:41 Total Bilirubin 24.3 mg/dL (0.2-1.2) H 05/25/16 07:17 Direct Bilirubin 16.1 mg/dL (0.0-0.5) H D 05/21/16 05:41 Indirect Bilirubin 6.2 mg/dL (0.0-1.2) H 05/21/16 05:41 AST 185 Units/L (5-34) H 05/25/16 07:17 ALT 122 Units/L (0-55) H 05/25/16 07:17 Alkaline Phosphatase 902 Units/L (38-126) H 05/25/16 07:17 Serum Total Protein 5.8 g/dL (6.0-8.3) L 05/25/16 07:17 Albumin 1.7 g/dL (3.5-5.0) L 05/25/16 07:17 Globulin 4.1 g/dL (2.4-3.5) H 05/25/16 07:17 Albumin/Globulin Ratio 0.4 (1.1-2.2) L 05/25/16 07:17 Vitamin B12 > 2000 pg/mL (213-816) H 05/21/16 05:41 Nasal Screen MRSA (PCR) Positive (Negative) A 05/21/16 11:48 - Attending Attestation I examined this patient and my medical decision-making was reviewed with the CURRICULUM COUNSELOR/PA/Advanced Practice Nurse/Resident Physician. I agree with the documented findings, disposition and treatment plan as described except to the extent set forth below. - Labs CBC & Chem 7: 05/25/16 07:17 05/25/16 07:17 - ABG Interpretation ABG results: PT/INR, D-dimer PT 13.8 Seconds (9.4-12.1) H 05/25/16 07:17
[2016-05-27] MEDS ORDERED: levoFLOXacin 750 MG TABLET PO SCH (10:00)
== END 2016-05-26 18:20 | disposition hospice, home (50) | DRG 435 ==
LOC: 2ANU 13:07 → EMEROO 13:07 → 2ANU 17:08 → SUATTDRO 17:55
PROVIDERS: ADMIT Internal Medicine; ATTEND Internal Medicine